=== PATIENT | female | born 1960 | race Caucasian/White ===

== ENCOUNTER 2018-01-26 13:22 | Inpatient (IN) ==
--- OUTSIDE RECORDS SUMMARY | 2018-01-26 13:32 | External Medical Summary | Clinical Summary ---
:1960 Author Organization [facility] Address [address] [place] [address] Care Team Providers Name Role Phone Unavailable Primary Care Provider Unavailable Allergies Not on File Current Medications Not on file Active Problems Not on file Social History Tobacco Use Types Packs/Day Years Used Date Never Assessed Sex Assigned at Date Recorded Not on file Plan of Treatment Health Maintenance Due Date Last Done Comments Hepatitis C Screening 1960 DTaP,Tdap,and Td Vaccines (1 - Tdap) 02/06/1979 CERVICAL CANCER SCREENING 02/06/1981 Breast Cancer Screening-Mammogram 02/06/2010 Colon Cancer Screening 02/06/2010 Zoster Recombinant Vaccine (RZV,Shingrix) (1 of 2 - [facility] 02/06/2010 2 Dose Standard) Influenza Vaccine (Season Ended) 2018 Results Not on filefrom Last 3 Months
--- NOTE | 2018-01-26 14:27 | History & Physical Report ---
History of Present Illness Date: 01/26/18 Chief complaint: Orthostatic hypotension, Lung mass HPI: Lani is a 57 yr old female who has been under the primary care of Dr Анна Davis in [facility]. She reports was seen approximately 4 weeks ago for coughing that would not go away. He was seen multiple times, however, symptoms did not improve. CT scan of the chest was performed that did reveal a large mass in the chest. On 01/23/[address] scan of the liver which did reveal a lesion in the right hepatic lobe. There was also presence of lymph nodes within the mediastinum that are concerning for metastatic disease. She has had intermittent episodes of nausea and vomiting accompanied with falls and confusion. She was referred to Dr. Lepe for oncology evaluation and recommendations. Today she was seen at the clinic and found to be hypotensive with lying blood pressure 112/74 and standing blood pressure of 73/54. Due to acute changes accompanied with concern for metastatic cancer. The hospitalist services were contacted and accepted. Patient for outpatient observation for further evaluation and treatment. Review of Systems All systems PM: 10-point ROS was reviewed, no additional remarkable complaints except - Constitutional Constitutional: Present: fatigue - Respiratory Respiratory: Present: cough, dyspnea - Gastrointestinal Gastrointestinal: Present: nausea, vomiting - Neurological Neurological: Present: confusion, frequent falls - Hematologic/Lymphatic Hematologic/Lymphatic: Present: easy bruising Past Medical History Medical History Updates: Hypertension. Hypothyroidism Surgical History: Colonoscopy-2013. Lumpectomy-2010 Family History: Mother-lung cancer Father-prostate cancer. Sister-breast cancer at age 56 Family History: As Above - Social History Smoking status: Current every day smoker Substance use type: does not use Alcohol intake frequency: does not drink Housing: house Household members: spouse Current occupational status: employed (manager integrated) Social history: Patient is , she has active and likes to garden. Has 3 adult children Medications Home Medications Medication Instructions Recorded Confirmed Type Calcium Carbonate [Calcium] 615 mg PO DAILY 01/26/18 01/26/18 History ClonazePAM [Klonopin] 0.5 mg PO DAILY PRN 01/26/18 01/26/18 History Ergocalciferol (Vitamin D2) 2 tab PO DAILY 01/26/18 01/26/18 History [Vitamin D2] FLUoxetine [Prozac] 1 cap PO DAILY 01/26/18 01/26/18 History Fenofibrate Nanocrystallized 1 tab PO HS 01/26/18 01/26/18 History [Fenofibrate] Levothyroxine Sodium 1 tab PO DAILY 01/26/18 01/26/18 History [Levothyroxine Sodium] Lisinopril/Hctz 1012.5 [Prinzide 1 tab PO DAILY 01/26/18 01/26/18 History 10/12.5] Magnesium 250 mg PO DAILY 01/26/18 01/26/18 History Pravastatin [Pravachol] 2 tab PO HS 01/26/18 01/26/18 History Ubidecarenone/Vitamin E [Co Q-10 1 tab PO DAILY 01/26/18 01/26/18 History 50 mg Softgel] Zinc 50 mg PO DAILY 01/26/18 01/26/18 History Allergies Allergy/AdvReac Type Severity Reaction Status Date / Time No Known Drug Allergies Allergy Verified 01/26/18 13:56 Exam Vital Signs: Temperature 98.1 F 01/26/18 13:43 Pulse Rate 84 01/26/18 13:43 Respiratory Rate 18 01/26/18 13:43 Blood Pressure 108/50 01/26/18 13:43 Pulse Oximetry 92 01/26/18 13:43 Height/Weight/BMI: Height 1.57 m Weight 74.6 kg Body Mass Index 30.3 - Constitutional Present: no acute distress, well nourished, well developed - Routine HEENT Exam Eye: Present: EOMI ENT: Present: mucous membranes moist, dentition normal - Routine Respiratory Exam Present: diminished air movement. Absent: wheezes - Routine Cardiovascular Exam Present: RRR, S1, S2. Absent: murmur - Routine Abdominal Exam Present: soft, normoactive bowel sounds, non distended. Absent: tenderness - Routine Extremities Exam Present: full ROM Comments: Noted to have multiple ecchymosis over legs - Routine Back/Spine/Pelvis Exam Back/Spine: Present: full ROM - Routine Skin Exam Present: intact, dry, warm - Routine Neurological Exam Present: alert, oriented X3, CN II-XII intact - Routine Psychiatric Exam Present: depressed (flat affact) Results - Labs CBC & Chem 7: 01/26/18 14:31 01/26/18 14:31 Assessment and Plan (1) Orthostatic hypotension Current visit: Yes Status: Acute Assessment and Plan: Impression Orthostatic Hypotension Frequent falls Confusion Lung mass Hypertension Hypothyroidism Chronic tobacco dependence Plan Admit patient outpatient observation status under the care of Dr Valencia Obtain orthostatic vital signs on admission Will initiate IV Fluids for hydration CT scan of the head to rule out intracranial trauma or bleeding Obtain the following labs on admission- CBC, CMP, magnesium, LDH, UA. Monitor on cardiac telemetry SCDs to bilateral for DVT prophylaxis She does wish to be a full code and this orders written Encourage tobacco cessation Will discuss further orders and plan of care with attending, Dr. Valencia At time of discharge medical care will return to primary care provider, Dr. Анна Davis in [place], [place] DVT Prophylaxis: SCD's Resuscitation Status: Full Code - Time spent with patient Time with patient PN: 50 minutes - Physician Narrative Narrative: Date: 01/26/18 Time: 1424 S: Pt is alert but oriented to self and place but not time. Pt reports n/v in the last few days but has a difficult time answering questions. Denies any f/c, reports a chronic cough. Pt has finished a series of multiple abx in the last few weeks bc of possible pna. Pt's is at beside and notes that November has been more confused in the last couple of days. Pt also reports constipation. O: Gen: no acute distress, AAOx2 Cards: RRR without murmurs Abd: Soft, non-tender A/p: Hypercalcemia -Likely 2/2 malignancy -Symptomatic and high level -Will do IV fluids, Calcitonin and monitor -Will consider ZA Possible Lung Malignancy -Lung mass, unclear if can be biopsied as plts also low - recommends possible LN biopsy initially, will disc Thrombocytopenia -Unclear etiology, possibly marrow infiltration -Some concern for DIC with high LDH -Will order DIC panel, peripheral smear Transaminitis -Possibly d/t mets vs. DIC vs. budd chiari -will do US with doppler Ppx -SCDs Hospital Course Summary Disclaimer: The visit summary below is not to be considered part of the above Progress Note. Hospital Course: Impression Orthostatic Hypotension Frequent falls Confusion Lung mass Hypertension Hypothyroidism Chronic tobacco dependence Plan Admit patient outpatient observation status under the care of Dr Valencia Obtain orthostatic vital signs on admission Will initiate IV Fluids for hydration CT scan of the head to rule out intracranial trauma or bleeding Obtain the following labs on admission- CBC, CMP, magnesium, LDH, UA. Monitor on cardiac telemetry SCDs to bilateral for DVT prophylaxis She does wish to be a full code and this orders written Encourage tobacco cessation Will discuss further orders and plan of care with attending, Dr. Valencia At time of discharge medical care will return to primary care provider, Dr. Анна Davis in [place], [place]
[2018-01-26] MEDS: NS 1,000 ML IV SCH ×4 (15:26→22:31)
--- NOTE | 2018-01-26 15:49 | CT Scan Report ---
Indication: recent falls, confusion PROCEDURE: CT head/brain wo con: Encounter: Initial Comparison: None. Findings: The ventricles and sulci are normal. There is no mass, mass effect, or midline shift. No evidence for intracranial hemorrhage. No intra, or extra-axial fluid collections. There is normal aeration of the paranasal and mastoid sinuses. There is no definite skull fracture or bony destructive process. IMPRESSION: Normal head CT without contrast. No evidence for acute cortical infarct, intracranial hemorrhage, or mass. .
[2018-01-26] MEDS: CALCITONIN 400 UNIT/2 ML INJECTION SQ SCH (18:15)
[2018-01-26] MEDS ORDERED: CALCITONIN 400 UNIT/2 ML INJECTION SQ SCH (21:00)
[2018-01-27] MEDS: NS 1,000 ML IV SCH ×4 (03:51→14:53)
--- NOTE | 2018-01-27 08:45 | Ultrasound Report ---
Indication: transaminitis PROCEDURE: US liver: Encounter: Initial Comparison: Outside chest CT dated January 23, 2018 Technique: Grayscale and color Doppler sonographic imaging of the right upper quadrant of the abdomen was performed. Findings: Hepatic parenchyma is heterogeneous with multiple small presumed metastatic lesions seen. The largest in the right lobe measures 3.6 cm in diameter. The largest in the left lobe measures 2.1 cm. The gallbladder is normal. There is no wall thickening, pericholecystic fluid, sonographic Zamorano's sign or cholelithiasis. Both the intra and extrahepatic biliary system are of normal caliber with the common duct measuring 3 mm in dimension. Visualized portions of the head and body of the pancreas are unremarkable. The right kidney is present without collecting system dilatation. The right kidney measures 11.5 cm in length. Impression: Presumed hepatic metastases. .
--- NOTE | 2018-01-27 08:49 | Ultrasound Report ---
Indication: TRANSAMINITIS PROCEDURE: US abd/pelvic doppler complete: Encounter: Initial Comparison: None Technique/findings/ Impression: Color doppler duplex imaging of the hepatic vasculature was performed. This shows normal flow direction and waveforms within the left, middle and right hepatic veins. Normal flow direction in the main portal vein with normal velocity of 30.7 cm/s. Hepatic artery shows a multiphasic normal waveform with a peak systolic velocity of 85.3 cm/s, end*velocity of 25.8 cm/s and resistive index of 0.7. .
[2018-01-27] MEDS: CALCITONIN 400 UNIT/2 ML INJECTION SQ SCH ×2 (09:31→21:16)
[2018-01-27] MEDS ORDERED: BUPIVACAINE 0.5% (5mg/ml) PF 30ml INJ SDV ONE ×2 (10:22)
[2018-01-27] MEDS ORDERED: LIDOCAINE 1% (10mg/ml) 5ml PF SDV ONE (10:23)
[2018-01-27] MEDS ORDERED: ONDANSETRON 4 MG/2 ML INJECTION IVP PRN (12:19)
[2018-01-27] MEDS ORDERED: ONDANSETRON ODT 4 MG TABLET PO PRN (12:39)
[2018-01-27] MEDS: PROCHLORPERAZINE 10 MG/2 ML INJECTION IVP PRN (12:53)
--- NOTE | 2018-01-27 13:02 | Consult Note ---
<Casandra Kenyon - Last Filed: 01/27/18 17:13> Oncology HPI - Data of Consult Consult date: 01/27/18 Requesting Physician: Arsen Valencia MD Primary Care Provider: Dr. Анна Davis - Consult Narrative Reason for consult: lung mass History of present illness: 57-year-old female seen by Dr. Lepe as new patient 01/26/18 in [place] with recent findings of lung mass, lymphadenopathy in mediastinum and hypodense liver lesions concerning for metastatic disease on CT scan done 01/23/18 in [place]. Patient with constitutional symptoms of fever, sweats, chest pain, persistent cough, shortness of air, recent confusion and falls. Also mildly orthostatic. Dunning diagnostic workup, and initiation of treatment are urgent and recommended admission to [facility]. At time of intake, patient reclining in hospital bed, at bedside. Is alert and oriented to person/place, is slow at times in her responses. Her chief complaint is nausea, denies emesis today. Also reports intermittent backache. Has intermittent 'hacking" cough, at times productive of clear sputum. Currently denies chest pain or shortness of air. Complains of chronic constipation, states normal stool 2 days ago. Denies dysuria, hematuria. No other complaints Review of Systems - Constitutional Constitutional: Present: fatigue. Absent: chills, fever(s), night sweats - EENT Eyes: Absent: change in vision Mouth/Throat: Absent: sore throat - Cardiovascular Cardiovascular: Present: dyspnea on exertion. Absent: chest pain - Respiratory Respiratory: Present: cough, dyspnea on exertion - Gastrointestinal Gastrointestinal: Present: as per HPI, constipation, nausea - Genitourinary Genitourinary: Absent: dysuria, hematuria - Musculoskeletal Musculoskeletal: Present: back pain - Neurological Neurological: Present: confusion, weakness PFSH Patient Stated Medical History Migraine Yes Dental Problems Yes: dentures Hypotension Yes Pneumonia Yes Hx Renal Disease No Depression Yes Medical History Updates: Hypertension. Hypothyroidism Surgical History: Colonoscopy-2013. Lumpectomy-2010 Family History: Sister diagnosed with breast cancer age 56. Mother age 70 with lung cancer. Father alive, history of prostate cancer, age at diagnosis 76 - Social History Smoking status: Current every day smoker Packs per day: 1 Time spent discussing smoking cessation with patient: 3 to 10 minutes Substance use type: does not use Alcohol intake frequency: does not drink Housing: house Household members: spouse Current occupational status: employed (manager of investigations) Does patient use chewing tobacco?: No Medications Home Medications Medication Instructions Recorded Confirmed Type Calcium Carbonate [Calcium] 615 mg PO DAILY 01/26/18 01/26/18 History ClonazePAM [Klonopin] 0.5 mg PO DAILY PRN 01/26/18 01/26/18 History Ergocalciferol (Vitamin D2) 2 tab PO DAILY 01/26/18 01/26/18 History [Vitamin D2] FLUoxetine [Prozac] 1 cap PO DAILY 01/26/18 01/26/18 History Fenofibrate Nanocrystallized 1 tab PO HS 01/26/18 01/26/18 History [Fenofibrate] Levothyroxine Sodium 1 tab PO DAILY 01/26/18 01/26/18 History [Levothyroxine Sodium] Lisinopril/Hctz 10/12.5 [Prinzide 1 tab PO DAILY 01/26/18 01/26/18 History 10/12.5] Magnesium 250 mg PO DAILY 01/26/18 01/26/18 History Pravastatin [Pravachol] 2 tab PO HS 01/26/18 01/26/18 History Ubidecarenone/Vitamin E [Co Q-10 1 tab PO DAILY 01/26/18 01/26/18 History 50 mg Softgel] Zinc 50 mg PO DAILY 01/26/18 01/26/18 History Allergies Allergy/AdvReac Type Severity Reaction Status Date / Time No Known Drug Allergies Allergy Verified 01/26/18 13:56 Exam Vital signs: Temperature 97.1 F 01/27/18 07:28 Pulse Rate 100 01/27/18 08:00 Respiratory Rate 16 01/26/18 22:54 Blood Pressure 142/72 H 01/27/18 07:28 Pulse Oximetry 92 01/27/18 07:28 - Constitutional no acute distress, well nourished, well developed - Routine HEENT Exam Head: Present: normocephalic Eye: Present: EOMI ENT: Present: mucous membranes dry - Routine Neck Exam Present: supple, lymphadenopathy (no cervical LAD. 1 cm left supraclavicular lymphadenopathy) - Routine Respiratory Exam Present: decreased breath sounds. Absent: wheezes, crackles - Routine Cardiovascular Exam Present: RRR, no murmur - Routine Abdominal Exam Present: soft, non tender - Routine Extremities Exam Present: no edema, full ROM - Routine Skin Exam Present: intact, dry, warm - Routine Neurological Exam Present: alert, moving all extremities - Routine Psychiatric Exam Present: normal affect, cooperative Oncology Results - Labs CBC & Chem 7: 01/27/18 04:32 01/27/18 04:32 Labs: Short CBC 01/26/18 01/26/18 01/27/18 Range/Units 14:31 14:32 04:32 WBC 4.5 4.5 3.9 L (4.5-11.0) T/MM3 Hgb 11.4 L 11.4 L 9.9 L D (12-16) GM/DL Hct 32.0 L 32.0 L 28.7 L (36-46) % Plt Count 40 L 40 L 36 L (130-400) T/MM3 BMP 01/26/18 01/27/18 14:31 04:32 Sodium 137 141 Potassium 3.5 L 3.2 L Chloride 95 L 104 D Carbon Dioxide 30 26 BUN 44.0 H 28.0 H Creatinine 1.1 0.8 D Glucose 145 H 96 Calcium 13.6 H* 11.0 H D Liver Function 01/26/18 Range/Units 14:31 Total Bilirubin 0.80 (0.20-1.30) MG/DL AST 264 H (14-36) U/L ALT 105 H (1-35) U/L Alkaline Phosphatase 105 (38-126) U/L Albumin 4.4 (3.5-5.0) g/dL Urine 01/26/18 Range/Units 14:19 Urine Color Yellow (YELLOW) Urine Clarity Clear Urine pH 6.0 (5.0-8.0) Ur Specific Kinsman 1.025 (1.015-1.025) Urine Protein Negative (NEGATIVE) Urine Glucose (UA) Negative (NEGATIVE) - Impressions Date of Exam: 01/27/18 Ordering Provider: Ash Lepe MD Type of Exam(s): CT biopsy bone marrow Reason for Exam(s): lung mass, low platelets Indication:lung mass, low platelets Procedure:CT biopsy bone marrow CT GUIDED BONE MARROW BIOPSY/ASPIRATION: The procedure including the benefits, risks, and alternatives were explained in detail to the patient. All of her questions were answered. They stated that they understood and wished to proceed. Informed consent was obtained. A pre-procedural timeout was done to verify the correct patient and procedure. Using sterile technique, local Xylocaine and Marcaine anesthesia, and CT guidance, an 11-gauge bone biopsy needle is advanced from a posterior approach into the right iliac bone. Approximately 6 cc of marrow is aspirated and a core biopsy was then taken. The needle was removed. There was no complication. Hemostasis was obtained and a compression bandage was applied. Following this, the patient was taken back to her room on the medical floor in stable condition. Impression: Successful bone marrow biopsy performed from the posterior aspect of the right iliac bone. Chencho Person RPA/ADRI performed this under my personal supervision. Assessment and Plan Assessment and Plan: 1. Abnormal CT scan with large mass in the chest obstructing left lung wind pipe and postobstructive findings. Also findings of mediastinal lymphadenopathy and liver lesion. 2. Frequent nausea/vomiting. Concern for brain metastasis. Plan Bone marrow biopsy performed today. Await pathology results. Continue supportive care. Dr. Lepe will see later today. Patient/ have no questions at this time <Ash Lepe - Last Filed: 01/27/18 19:24> Oncology HPI - Data of Consult Requesting Physician: Arsen Valencia MD Review of Systems - Respiratory Respiratory: Absent: hemoptysis [facility] Patient Stated Medical History Migraine Yes Dental Problems Yes: dentures Hypotension Yes Pneumonia Yes Hx Renal Disease No Depression Yes Exam Vital signs: Temperature 96.3 F L 01/27/18 16:00 Pulse Rate 90 01/27/18 16:00 Respiratory Rate 16 01/27/18 19:06 Blood Pressure 125/62 01/27/18 16:00 Pulse Oximetry 93 01/27/18 14:32 - Routine Neck Exam Present: lymphadenopathy - Routine Respiratory Exam Present: diminished air movement (wheezing and rhonchi of left lung.) - Routine Neurological Exam Present: CN II-XII intact Much more responsive than yesterday. Oncology Results - Labs CBC & Chem 7: 01/27/18 04:32 01/27/18 04:32 Labs: Short CBC 01/26/18 01/27/18 Range/Units 14:32 04:32 WBC 4.5 3.9 L (4.5-11.0) T/MM3 Hgb 11.4 L 9.9 L D (12-16) GM/DL Hct 32.0 L 28.7 L (36-46) % Plt Count 40 L 36 L (130-400) T/MM3 BMP 01/27/18 01/27/18 04:32 17:02 Sodium 141 Potassium 3.2 L Chloride 104 D Carbon Dioxide 26 BUN 28.0 H Creatinine 0.8 D Glucose 96 Calcium 11.0 H D 10.4 H Assessment and Plan Assessment and Plan: Patient examined, chart reviewed, I participated development of the plan of care of this patient with Shannan Kenyon. CT scan shows a large left lung mass that surrounds and narrows the left mainstem bronchus in the left lower lobe bronchus. Physical exam documents increased wheezing and stridor-type sounds through the left bronchus in the central chest. It is associated with lesions in the liver compatible with metastatic disease, hypercalcemia was calcium of 13 , confusion, elevated LDH of 4000 and severe thrombocytopenia with platelet count of 40,000. Peripheral blood has leukoerythroblastic findings. 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 Left supraclavicular lymph node is near the carotid artery and jugular vein and would be difficult to biopsy secondary to these vascular structures being so near. Will obtain bone marrow biopsy and hopefully this will yield a diagnosis if not we'll consider platelet transfusion and bronchoscopy or needle biopsy of liver. Will obtain bone scan. I discussed the bone marrow biopsy and the plan with the patient this morning. She had at this afternoon and tolerated well. Hopefully will have pathology tomorrow.
--- NOTE | 2018-01-27 13:09 | CT Scan Report ---
Indication:lung mass, low platelets Procedure:CT biopsy bone marrow CT GUIDED BONE MARROW BIOPSY/ASPIRATION: The procedure including the benefits, risks, and alternatives were explained in detail to the patient. All of her questions were answered. They stated that they understood and wished to proceed. Informed consent was obtained. A pre-procedural timeout was done to verify the correct patient and procedure. Using sterile technique, local Xylocaine and Marcaine anesthesia, and CT guidance, an 11-gauge bone biopsy needle is advanced from a posterior approach into the right iliac bone. Approximately 6 cc of marrow is aspirated and a core biopsy was then taken. The needle was removed. There was no complication. Hemostasis was obtained and a compression bandage was applied. Following this, the patient was taken back to her room on the medical floor in stable condition. Impression: Successful bone marrow biopsy performed from the posterior aspect of the right iliac bone. Chencho Person RPA/ADRI performed this under my personal supervision. .
--- NOTE | 2018-01-27 13:45 | Progress Note ---
- Date 01/27/18 Subjective: Pt reports n/v today, denies any f/c, cp or sob. Denies any abd pain. Pt not able to keep food down d/t n/v. Pt does feel a bit more awake and focused today. Objective Vital signs: Temperature 97.1 F 01/27/18 07:28 Pulse Rate 100 01/27/18 08:00 Respiratory Rate 16 01/26/18 22:54 Blood Pressure 142/72 H 01/27/18 07:28 Pulse Oximetry 92 01/27/18 07:28 Height/Weight/BMI: Height 5 ft 1.75 in Weight 76.3 kg Body Mass Index 30.3 - Constitutional Present: no acute distress - Routine HEENT Exam Head: Present: normocephalic, atraumatic Eye: Present: EOMI - Routine Respiratory Exam Present: CTA bilaterally. Absent: wheezes, crackles - Routine Cardiovascular Exam Present: RRR, no murmur - Routine Abdominal Exam Present: soft, non distended, non tender - Routine Extremities Exam Present: no edema. Absent: cyanosis, clubbing - Routine Skin Exam Present: intact, dry. Absent: erythema - Routine Neurological Exam Present: alert, oriented X3 - Routine Psychiatric Exam Present: normal affect Results - Labs CBC & Chem 7: 01/27/18 04:32 01/27/18 04:32 Assessment and Plan (1) Orthostatic hypotension Current visit: Yes Status: Acute Assessment and Plan: Hypercalcemia -Likely 2/2 malignancy -Improving -Cont. IV fluids, Calcitonin and monitor -Will consider ZA AMS -Improving, 2/2 to hypercalcemia -Check TSH, CT head unremarkable Possible Lung Malignancy -Lung mass, unclear if can be biopsied as plts also low - recommends possible LN biopsy vs. BM biopsy -Oncology following Pancytopenia -Unclear etiology, possibly marrow infiltration -Some concern for DIC with high LDH but DIC panel shows low probability of DIC -peripheral smear pending, possible bone marrow biopsy Transaminitis -Possibly d/t mets -US with doppler noted mets but otherwise unremarkable HTN -BPs improving, will cont. home lisinopril/HCTZ Hypothyroid -Check TSH -Cont. home levo HLD -Hold home pravastatin d/t transaminitis Depression/Anxiety -Cont. home fluoxetine Ppx -SCDs - Physician Narrative Narrative: Date: 01/27/18 Time: 1330 Hospital Course Summary Disclaimer: The visit summary below is not to be considered part of the above Progress Note. Hospital Course: 01/27/18 Pt improving with hypercalcemia tx, oncology team working on getting biopsy to get cancer dx.
[2018-01-27] MEDS: ALBUTEROL/IPRATROPIUM 2.5mg-0.5mg/3ml NEB AEROSOL PRN (14:32)
[2018-01-27] MEDS ORDERED: FALL RISK - PHARMACY CONSULT MC ONE (14:56)
[2018-01-27] MEDS: LEVOTHYROXINE 125 MCG TABLET PO SCH (16:35)
[2018-01-27 17:24] VITALS: BMI 31.0
[2018-01-27] MEDS ORDERED: MORPHINE SULFATE 2mg INJECTION IVP PRN (18:56)
[2018-01-28] MEDS: LEVOTHYROXINE 125 MCG TABLET PO SCH (06:14)
[2018-01-28] MEDS ORDERED: MORPHINE SULFATE 4mg INJECTION IVP PRN (06:45)
[2018-01-28] MEDS ORDERED: SALINE FLUSH 10ml SYRINGE ONE (08:32)
[2018-01-28] MEDS: LISINOPRIL/HCTZ 10/12.5 MG TABLET PO SCH (09:52)
[2018-01-28] MEDS: MAGNESIUM OXIDE 400 MG TABLET PO SCH (09:52)
[2018-01-28] MEDS: FLUoxetine 20 MG CAPSULE PO SCH (09:53)
[2018-01-28] MEDS: MAGNESIUM SULFATE 1gm PREMIX 1 GM/100 ML BAG IV SCH ×3 (10:04→13:03)
[2018-01-28] MEDS: CALCITONIN 400 UNIT/2 ML INJECTION SQ SCH ×2 (10:05→22:06)
[2018-01-28] MEDS: SALINE FLUSH 10ml SYRINGE IV PRN ×3 (10:06→18:39)
--- NOTE | 2018-01-28 11:20 | Progress Note ---
- Date 01/28/18 Subjective: Pt repots feeling better this am, n/v has improved and pt able to tolerate PO intake this am. Pt denies any cp, sob, n/v/d, f/c. Objective Vital signs: Temperature 96.6 F L 01/28/18 07:30 Pulse Rate 99 01/28/18 07:36 Respiratory Rate 16 01/28/18 07:30 Blood Pressure 119/59 01/28/18 07:38 Pulse Oximetry 104 H 01/28/18 07:38 Height/Weight/BMI: Height 5 ft 1.75 in Weight 75.3 kg Body Mass Index 31.0 - Constitutional Present: no acute distress - Routine HEENT Exam Head: Present: normocephalic, atraumatic - Routine Respiratory Exam Present: CTA bilaterally. Absent: wheezes, crackles - Routine Cardiovascular Exam Present: RRR, no murmur - Routine Abdominal Exam Present: soft, non distended, non tender - Routine Extremities Exam Present: no edema. Absent: cyanosis, clubbing - Routine Skin Exam Present: intact, dry. Absent: erythema - Routine Neurological Exam Present: alert, oriented X3 - Routine Psychiatric Exam Present: normal affect Results - Labs CBC & Chem 7: 01/28/18 04:15 01/28/18 04:15 Assessment and Plan (1) Orthostatic hypotension Current visit: Yes Status: Acute Assessment and Plan: Hypercalcemia -Likely 2/2 malignancy -Improving -d/c IV fluids, cont. calcitonin for one more day -Will consider ZA AMS -Resolved -2/2 to hypercalcemia -Check TSH low, will check T4, CT head unremarkable Possible Lung Malignancy -Lung mass, unclear if can be biopsied as plts also low - recommended BM biopsy d/t risk of bleeding -BM Biopsy done on 01/27 Pancytopenia -Unclear etiology, possibly marrow infiltration -Some concern for DIC with high LDH but DIC panel shows low probability of DIC -peripheral smear pending, bone marrow biopsy 01/27 Transaminitis -Possibly d/t mets -US with doppler noted mets but otherwise unremarkable HTN -BPs improving, will cont. home lisinopril/HCTZ Hypothyroid -TSH low, T4 pending -Cont. home levo HLD -Hold home pravastatin d/t transaminitis Depression/Anxiety -Cont. home fluoxetine Ppx -SCDs - Physician Narrative Narrative: Date: 01/28/18 Time: 1115 Hospital Course Summary Disclaimer: The visit summary below is not to be considered part of the above Progress Note. Hospital Course: 01/27/18 Pt improving with hypercalcemia tx, oncology team working on getting biopsy to get cancer dx. 01/28/18 Pt doing better with hypercalcemia tx, will back down and monitor Ca. Platelets cont. to trend down, monitor and will transfuse if <10k. Bone marrow biopsy pending.
[2018-01-28] MEDS: ALBUTEROL/IPRATROPIUM 2.5mg-0.5mg/3ml NEB AEROSOL PRN (13:00)
--- NOTE | 2018-01-28 13:50 | Nuclear Medicine Report ---
Indication: lung cancer back pain PROCEDURE: NM bone scan whole body: Encounter: Subsequent Comparison: CT chest dated January 23, 2018 Technique: 27.3 mCi of Tc-99m MDP was administered intravenously. Anterior and posterior planar whole-body and spot images were obtained. FINDINGS: The scan demonstrates the expected normal biodistribution for the radiotracer. There is probable degenerative uptake seen in the shoulders. There is no abnormal radiotracer uptake to suggest bony metastasis. IMPRESSION: No evidence of metastatic disease to the skeleton. .
--- NOTE | 2018-01-28 20:24 | Progress Note ---
Oncology Subjective Patient since back pain is better. Confusion is less. She is feeling better. Discussed preliminary diagnosis with patient, , daughter. Dr. Feldman detected earlier today that the bone marrow pathology is very suggestive of small cell lung cancer. Confirmatory stains will be out tomorrow. Exam Vital signs: Temperature 97.0 F 01/28/18 15:24 Pulse Rate 99 01/28/18 15:24 Respiratory Rate 22 01/28/18 18:38 Blood Pressure 136/72 01/28/18 15:24 Pulse Oximetry 93 01/28/18 15:24 - Constitutional no acute distress, cooperative - Routine HEENT Exam Head: Present: normocephalic Eye: Present: EOMI, PERRL ENT: Present: mucous membranes moist Throat: normal inspection - Routine Neck Exam Present: supple, lymphadenopathy (left supraclavicular area 1 cm) - Routine Respiratory Exam Present: stridor (over left lung), wheezes (over left lung) - Routine Cardiovascular Exam Present: RRR, no murmur - Routine Abdominal Exam Present: soft, non distended, non tender - Routine Extremities Exam Absent: cyanosis, clubbing, edema - Routine Skin Exam Present: dry, warm - Routine Neurological Exam Present: alert, oriented X3, CN II-XII intact - Routine Psychiatric Exam Present: normal affect, anxious Oncology Results - Labs CBC & Chem 7: 01/28/18 04:15 01/28/18 04:15 Labs: Short CBC 01/28/18 Range/Units 04:15 WBC 4.0 L (4.5-11.0) T/MM3 Hgb 9.4 L (12-16) GM/DL Hct 27.8 L (36-46) % Plt Count 27 L* (130-400) T/MM3 BMP 01/28/18 04:15 Sodium 141 Potassium 3.9 D Chloride 108 H Carbon Dioxide 23 BUN 17.0 Creatinine 0.7 Glucose 89 Calcium 10.5 H Liver Function 01/28/18 Range/Units 04:15 Albumin 3.5 (3.5-5.0) g/dL - Impressions Type of Exam(s): NM bone scan whole body Reason for Exam(s): lung cancer back pain Indication: lung cancer back pain PROCEDURE: NM bone scan whole body: Encounter: Subsequent Comparison: CT chest dated January 23, 2018 Technique: 27.3 mCi of Tc-99m MDP was administered intravenously. Anterior and posterior planar whole-body and spot images were obtained. FINDINGS: The scan demonstrates the expected normal biodistribution for the radiotracer. There is probable degenerative uptake seen in the shoulders. There is no abnormal radiotracer uptake to suggest bony metastasis. IMPRESSION: No evidence of metastatic disease to the skeleton. . Assessment and Plan Assessment and Plan: Impression: Smalll cell lung cancer Extensiver stage. This is based on bone marrow pathology preliminary report Confirmatory testing will be out tomorrow but preliminary results of bone marrow biopsy are compatible. CT scan shows a large left lung mass that surrounds and narrows the left mainstem bronchus in the left lower lobe bronchus. Physical exam documents increased wheezing and stridor-type sounds through the left bronchus in the central chest. It is associated with lesions in the liver compatible with metastatic disease, hypercalcemia was calcium of 13 on admission, confusion, elevated LDH of 4000 and severe thrombocytopenia with platelet count of 27,000. Peripheral blood has leukoerythroblastic findings. Bone scan does not show metastatic disease. Will await confirmation but will look at therapy with Carboplatin and Etoposide tomorrow when confirmatory stains are available. We'll start allopurinol, obtain MRI of the brain, place PICC line. Discussed chemotherapy with carboplatin and etoposide with the plan of starting tomorrow afternoon. Hypercalcemia. Thrombocytopenia from bone marrow involvement. Respiratory compromise of left lung secondary to mass. Plan: Chemotherapy education with carboplatinum and etoposide. Thrombocytopenia will be exacerbated initially. Will definitely require platelet support. Begin allopurinol Watch for tumor lysis Obtain MRI of the brain Follow calcium - Time Spent With Patient Total time spent is greater than 50% in coordination of care (as documented) at patient's floor/unit and/or counseling patient: 25 - 35 minutes
[2018-01-28] MEDS: ALLOPURINOL 300 MG TABLET PO SCH (22:03)
[2018-01-29] MEDS: LEVOTHYROXINE 125 MCG TABLET PO SCH (06:24)
[2018-01-29] MEDS: FLUoxetine 20 MG CAPSULE PO SCH (09:08)
[2018-01-29] MEDS: ALLOPURINOL 300 MG TABLET PO SCH (09:09)
[2018-01-29] MEDS: LISINOPRIL/HCTZ 10/12.5 MG TABLET PO SCH (09:09)
[2018-01-29] MEDS: MAGNESIUM OXIDE 400 MG TABLET PO SCH (09:09)
[2018-01-29] MEDS ORDERED: SALINE FLUSH 10ml SYRINGE ONE (10:08)
[2018-01-29] MEDS ORDERED: GADOTERIDOL 279.3mg/ml - 15ml vial IVP ONE (10:09)
--- NOTE | 2018-01-29 10:54 | Magnetic Resonance Report ---
Indication: Small cell lung cancer PROCEDURE: MR head/brain wo/w con: Encounter: Initial Comparisons: None Technique: Multiplanar, multisequence, MR imaging of the head with and without contrast was acquired. Contrast: 15 mL of ProHance FINDINGS: The ventricles are of normal size, shape, and contour for the patient's age. The brain stem, cerebellum, and cerebral hemispheres have a normal morphologic appearance as well as MR signal intensity on all pulse sequences. Following intravenous administration of contrast, no areas of abnormal enhancement are evident. There are no areas of restricted diffusion to suggest an acute infarct. There is no evidence of an intracranial mass lesion, intracranial hemorrhage, or hydrocephalus. Small left mastoid effusion. The visualized portions of the orbits, calvarium, paranasal sinuses, and skull base demonstrate no other abnormality. IMPRESSION: No evidence of intracranial metastatic disease. .
[2018-01-29] MEDS: CALCITONIN 400 UNIT/2 ML INJECTION SQ SCH ×2 (11:31→21:00)
[2018-01-29] MEDS: SALINE FLUSH 10ml SYRINGE IV PRN ×4 (11:32→20:05)
--- NOTE | 2018-01-29 11:54 | Progress Note ---
- Date 01/29/18 Subjective: Pt doing well this am, denies any cp, n/v/d, f/c. or sob. Pt saw yesterday and he told pt that she will likely be here for a couple of weeks. Objective Vital signs: Temperature 97.2 F 01/29/18 07:00 Pulse Rate 99 01/29/18 08:00 Respiratory Rate 20 01/29/18 07:00 Blood Pressure 117/63 01/29/18 07:00 Pulse Oximetry 91 01/29/18 07:00 Height/Weight/BMI: Height 5 ft 1.75 in Weight 72.2 kg Body Mass Index 31.0 - Constitutional Present: no acute distress - Routine HEENT Exam Head: Present: normocephalic, atraumatic Eye: Present: EOMI - Routine Respiratory Exam Present: CTA bilaterally. Absent: wheezes - Routine Cardiovascular Exam Present: RRR, no murmur - Routine Abdominal Exam Present: soft, non distended, non tender - Routine Extremities Exam Present: no edema. Absent: cyanosis, clubbing - Routine Skin Exam Present: intact, dry. Absent: erythema - Routine Neurological Exam Present: alert, oriented X3 - Routine Psychiatric Exam Present: normal affect Results - Labs CBC & Chem 7: 01/29/18 04:32 01/29/18 04:32 Assessment and Plan (1) Orthostatic hypotension Current visit: Yes Status: Acute Assessment and Plan: Lung Malignancy -Lung mass, plts low so recommended bone marrow biopsy d/t risk of bleeding -BM Biopsy done on 01/27, final report pending but prelim report suggests small cell lung cancer per note Hypercalcemia -Likely 2/2 malignancy, PTH low -Much improved -d/c IV fluids, cont. calcitonin for one more day -Will consider ZA AMS -Resolved -2/2 to hypercalcemia -Check TSH low, will check T4, CT head unremarkable Pancytopenia -Likely from marrow infiltration -Some concern for DIC with high LDH but DIC panel shows low probability of DIC -peripheral smear has leukoerythroblastic findings, bone marrow biopsy report pending -Expected to get worse with chemo so will monitor and replace as needed Severe Thrombocytopenia -Likely 2/2 malignancy -40k on admission, now in the 20sK -Will give plts if <10K Transaminitis -Possibly d/t mets -US with doppler noted mets but otherwise unremarkable HTN -BPs improving, will cont. home lisinopril/HCTZ Hypothyroid -TSH low, T4 pending -Cont. home levo HLD -Hold home pravastatin d/t transaminitis Depression/Anxiety -Cont. home fluoxetine Ppx -SCDs - Physician Narrative Narrative: Date: 01/29/18 Time: 1142 Hospital Course Summary Disclaimer: The visit summary below is not to be considered part of the above Progress Note. Hospital Course: 01/27/18 Pt improving with hypercalcemia tx, oncology team working on getting biopsy to get cancer dx. 01/28/18 Pt doing better with hypercalcemia tx, will back down and monitor Ca. Platelets cont. to trend down, monitor and will transfuse if <10k. Bone marrow biopsy pending. 01/29/18 Pt continues to improve but plts remain low. Prelim reports on BM biopsy shows likely small cell lung cancer, onc plans on starting chemo tx in hospital and monitor blood counts to make sure they don't drop further. Will cont. to monitor Ca levels.
--- NOTE | 2018-01-29 13:15 | Progress Note ---
<Casandra Kenyon L - Last Filed: 01/29/18 16:10> Oncology Subjective Reclining in hospital bed, family at bedside. Alert and oriented. Answers all questions appropriately. Continues with intermittent cough, denies worsening symptoms. Feels the breathing treatments have helped. Denies pain currently. States is eating and drinking better. Voiding normally. Small bowel movement today General: No fever, no night sweats Eyes: No redness, no pain, no diplopia ENT: No mouth sores, no trouble swallowing Cardiac: No chest pain no palpitations Pulmonary:+ cough, no shortness of breath, no wheezing Abdomen: No pain, no nausea vomiting, no diarrhea or constipation : No urgency, frequency, dysuria, or hematuria Musculoskeletal: No arthritis, no myalgias Neurological: No headaches, no focal weakness Skin: No rash, no sores Psychiatric: No anxiety, no depression Exam Vital signs: Temperature 97.2 F 01/29/18 07:00 Pulse Rate 99 01/29/18 08:00 Respiratory Rate 20 01/29/18 07:00 Blood Pressure 117/63 01/29/18 07:00 Pulse Oximetry 91 01/29/18 07:00 Narrative: Generic Name Dose Route Start Last Admin Trade Name Freq PRN Reason Stop Dose Admin Albuterol/Ipratropium 3 ml 01/27/18 14:23 01/29/18 14:58 Duoneb AEROSOL 3 ml Q6H PRN Administration Allopurinol 300 mg 01/28/18 22:00 01/29/18 09:09 Zyloprim PO 300 mg DAILY DELICIA Administration Calcitonin Prospect 300 unit 01/26/18 18:00 01/29/18 11:31 Miacalcin SQ 01/30/18 23:00 300 unit Q12HR DELICIA Administration Diphenhydramine HCl 50 mg 01/29/18 15:17 Benadryl IVP PRN PRN Fluoxetine HCl 20 mg 01/28/18 09:00 01/29/18 09:08 Prozac PO 20 mg DAILY DELICIA Administration Guaifenesin 400 mg 01/27/18 14:24 Robitussin Liq PO Q4H PRN Cough /Congestion Lisinopril/HCTZ 1 tab 01/28/18 09:00 01/29/18 09:09 Prinzide 10/12.5 PO 1 tab DAILY DELICIA Administration Hydrocortisone Sodium Succinate 100 mg 01/29/18 15:19 Solu-Cortef IVP PRN PRN Carboplatin 732 mg/ Sodium 323.2 mls @ 330 mls/hr 01/29/18 15:30 Chloride IV 01/29/18 16:28 O ONE Etoposide 175 mg/ Sodium 508.75 mls @ 300 mls/hr 01/29/18 16:30 Chloride IV 01/29/18 18:11 O ONE Levothyroxine Sodium 125 mcg 01/27/18 13:45 01/29/18 06:24 Synthroid PO Not Given ACB DELICIA Magnesium Oxide 200 mg 01/28/18 09:00 01/29/18 09:09 Magox PO 200 mg DAILY DELICIA Administration Methylprednisolone Sodium Succinate 125 mg 01/29/18 15:19 Solu-Medrol IVP PRN PRN Morphine Sulfate 2 - 4 mg 01/28/18 06:45 01/28/18 18:38 Morphine Sulfate Inj IVP 4 mg Q3-4HR PRN Administration Pain Olanzapine 2.5 mg 01/30/18 09:00 Zyprexa PO 02/01/18 09:01 DAILY DELICIA Ondansetron HCl 4 mg 01/27/18 12:39 01/27/18 19:06 Zofran Odt Tablet PO 4 mg Q4H PRN Administration Nausea &/or vomiting Prochlorperazine Edisylate 10 mg 01/27/18 12:39 01/27/18 12:53 Compazine Iv IVP 10 mg Q6H PRN Administration Nausea &/or vomiting Ranitidine HCl 150 mg 01/29/18 14:56 Zantac PO BID PRN Sodium Chloride 10 - 80 ml 01/27/18 04:34 01/29/18 15:11 Iv Flush IV 10 ml PRN PRN Administration Flushing Sodium Chloride 500 ml 01/28/18 10:33 01/29/18 15:17 Normal Saline IV 500 ml PRN PRN Administration Discontinued Medications Generic Name Dose Route Start Last Admin Trade Name Freq PRN Reason Stop Dose Admin Calcitonin Prospect 0 unit 01/26/18 21:00 Miacalcin SQ Q12HR DELICIA Sodium Chloride 1,000 mls @ 200 mls/hr 01/26/18 14:30 01/27/18 19:00 Normal Saline IV Infused .Q5H DELICIA Infusion Sodium Chloride 1,000 mls @ 999.9 mls/hr 01/26/18 15:00 01/26/18 17:31 Normal Saline IV 01/26/18 16:00 Not Given .Q1H DELICIA Magnesium Sulfate/Dextrose 1 gm in 100 mls @ 100 mls/hr 01/28/18 08:56 14:03 Mag Sulf 1gm Premix IV 01/28/18 11:55 Infused Q1H DELICIA Infusion Dexamethasone 10 mg/ Sodium 52.5 mls @ 210 mls/hr 01/29/18 15:00 01/29/18 16: 03 Chloride IV 01/29/18 15:14 210 mls/hr O ONE Administration Fosaprepitant 150 mg/ Sodium 145 mls @ 290 mls/hr 01/29/18 15:00 01/29/18 15: 12 Chloride IV 01/29/18 15:29 290 mls/hr O ONE Administration Morphine Sulfate 2 - 4 mg 01/27/18 18:56 01/27/18 19:06 Morphine Sulf 2 Mg Inj IVP 2 mg Q3-4HR PRN Administration Pain Olanzapine 2.5 mg 01/29/18 15:15 01/29/18 16:02 Zyprexa PO 01/29/18 15:16 2.5 mg O ONE Administration Ondansetron HCl 4 mg 01/27/18 12:19 Zofran IVP Q6H PRN Nausea &/or vomiting Palonosetron 0.25 mg 01/29/18 14:45 01/29/18 15:11 Aloxi IV 01/29/18 14:46 0.25 mg O ONE Administration Pharmacy Consult 1 each 01/27/18 14:56 Pharmacy Consult - Fall Risk 01/27/18 14:57 ONE TIME ONE Potassium Chloride 40 meq 01/27/18 08:27 01/27/18 09:32 K-Dur 20 Meq Tablet PO 01/27/18 08:28 40 meq O ONE Administration Potassium Chloride 40 meq 01/27/18 18:00 01/27/18 19:07 K-Dur 20 Meq Tablet PO 01/27/18 18:01 40 meq O ONE Administration - Constitutional no acute distress, well nourished, well developed - Routine HEENT Exam Head: Present: normocephalic Eye: Present: EOMI ENT: Present: mucous membranes moist - Routine Neck Exam Present: supple. Absent: lymphadenopathy - Routine Respiratory Exam Present: decreased breath sounds. Absent: wheezes, crackles - Routine Cardiovascular Exam Present: RRR - Routine Abdominal Exam Present: soft, non tender. Absent: mass - Routine Extremities Exam Present: no edema - Routine Back/Spine/Pelvis Exam Back/Spine: Absent: vertebral tenderness - Routine Skin Exam Present: intact, dry - Routine Neurological Exam Present: alert, oriented X3 - Routine Psychiatric Exam Present: normal affect, cooperative Oncology Results - Labs CBC & Chem 7: 01/29/18 04:32 01/29/18 04:32 Labs: Short CBC 01/29/18 Range/Units 04:32 WBC 3.4 L (4.5-11.0) T/MM3 Hgb 9.3 L (12-16) GM/DL Hct 27.5 L (36-46) % Plt Count 29 L* (130-400) T/MM3 BMP 01/29/18 04:32 Sodium 138 Potassium 3.6 Chloride 101 D Carbon Dioxide 26 BUN 13.0 Creatinine 0.6 L Glucose 98 Calcium 10.4 H Liver Function 01/29/18 Range/Units 04:32 Total Bilirubin 0.90 (0.20-1.30) MG/DL AST 220 H (14-36) U/L ALT 87 H (1-35) U/L Alkaline Phosphatase 113 (38-126) U/L Albumin 3.7 (3.5-5.0) g/dL - Impressions Date of Exam: 01/29/18 Ordering Provider: Ash Lepe MD Type of Exam(s): MR head/brain wo/w con Reason for Exam(s): Small cell lung cancer Indication: Small cell lung cancer PROCEDURE: MR head/brain wo/w con: Encounter: Initial Comparisons: None Technique: Multiplanar, multisequence, MR imaging of the head with and without contrast was acquired. Contrast: 15 mL of ProHance FINDINGS: The ventricles are of normal size, shape, and contour for the patient's age. The brain stem, cerebellum, and cerebral hemispheres have a normal morphologic appearance as well as MR signal intensity on all pulse sequences. Following intravenous administration of contrast, no areas of abnormal enhancement are evident. There are no areas of restricted diffusion to suggest an acute infarct. There is no evidence of an intracranial mass lesion, intracranial hemorrhage, or hydrocephalus. Small left mastoid effusion. The visualized portions of the orbits, calvarium, paranasal sinuses, and skull base demonstrate no other abnormality. IMPRESSION: No evidence of intracranial metastatic disease. . Assessment and Plan Assessment and Plan: Impression: Smalll cell lung cancer Extensiver stage. This is based on bone marrow pathology preliminary report Confirmatory testing will be out tomorrow but preliminary results of bone marrow biopsy are compatible. CT scan shows a large left lung mass that surrounds and narrows the left mainstem bronchus in the left lower lobe bronchus. Physical exam documents increased wheezing and stridor-type sounds through the left bronchus in the central chest. It is associated with lesions in the liver compatible with metastatic disease, hypercalcemia was calcium of 13 on admission, confusion, elevated LDH of 4000 and severe thrombocytopenia with platelet count of 27,000. Peripheral blood has leukoerythroblastic findings. Bone scan does not show metastatic disease. Will await confirmation but will look at therapy with Carboplatin and Etoposide. PICC line has been placed. MRI of brain negative for metastatic disease. Hypercalcemia. Improved. Thrombocytopenia from bone marrow involvement. Platelets 29K today, 01/29/17. Respiratory compromise of left lung secondary to mass. Subjectively reports decreased cough, denies SOA. Plan: Chemotherapy education provided today on carboplatin/etoposide. Copy of patient treatment information provided to patient and entire contents reviewed. Taught goal of treatment initially will be palliation, hopefully intent of cure. Taught desired effects, potential side effects, signs and symptoms to report,, but are the possible side effects and reviewed potential common side effects of risk of infection, bleeding, anemia, nausea vomiting, hair loss. Following discussion, has no questions and informed consent is obtained. Continue supportive care ; follow kidney function and counts closely. Reviewed importance of adequate nutrition, push fluids, be as active as possible, and continued to be abstinent from smoking. Accepts the stop smoking information and at this time plans to remain abstinent. Congratulated. - Time Spent With Patient Total time spent is greater than 50% in coordination of care (as documented) at patient's floor/unit and/or counseling patient: greater than 35 minutes Medications Home Medications Medication Instructions Recorded Confirmed Type Calcium Carbonate [Calcium] 615 mg PO DAILY 01/26/18 01/26/18 History ClonazePAM [Klonopin] 0.5 mg PO DAILY PRN 01/26/18 01/26/18 History Ergocalciferol (Vitamin D2) 2 tab PO DAILY 01/26/18 01/26/18 History [Vitamin D2] FLUoxetine [Prozac] 1 cap PO DAILY 01/26/18 01/26/18 History Fenofibrate Nanocrystallized 1 tab PO HS 01/26/18 01/26/18 History [Fenofibrate] Levothyroxine Sodium 1 tab PO DAILY 01/26/18 01/26/18 History [Levothyroxine Sodium] Lisinopril/Hctz 06/05.5 [Prinzide 1 tab PO DAILY 01/26/18 01/26/18 History 10.5] Magnesium 250 mg PO DAILY 01/26/18 01/26/18 History Pravastatin [Pravachol] 2 tab PO HS 01/26/18 01/26/18 History Ubidecarenone/Vitamin E [Co Q-10 1 tab PO DAILY 01/26/18 01/26/18 History 50 mg Softgel] Zinc 50 mg PO DAILY 01/26/18 01/26/18 History Allergies Allergy/AdvReac Type Severity Reaction Status Date / Time No Known Drug Allergies Allergy Verified 01/26/18 13:56 <Ash Lepe - Last Filed: 01/29/18 18:16> Exam Vital signs: Temperature 97.0 F 01/29/18 14:55 Pulse Rate 102 H 01/29/18 14:55 Respiratory Rate 14 01/29/18 15:00 Blood Pressure 128/77 01/29/18 14:55 Pulse Oximetry 96 01/29/18 15:00 Oncology Results - Labs CBC & Chem 7: 01/29/18 04:32 01/29/18 04:32 Labs: Short CBC 01/29/18 Range/Units 04:32 WBC 3.4 L (4.5-11.0) T/MM3 Hgb 9.3 L (12-16) GM/DL Hct 27.5 L (36-46) % Plt Count 29 L* (130-400) T/MM3 BMP 01/29/18 04:32 Sodium 138 Potassium 3.6 Chloride 101 D Carbon Dioxide 26 BUN 13.0 Creatinine 0.6 L Glucose 98 Calcium 10.4 H Liver Function 01/29/18 Range/Units 04:32 Total Bilirubin 0.90 (0.20-1.30) MG/DL AST 220 H (14-36) U/L ALT 87 H (1-35) U/L Alkaline Phosphatase 113 (38-126) U/L Albumin 3.7 (3.5-5.0) g/dL Assessment and Plan Assessment and Plan: 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 Platelets today are 29,000. LDH is 3800, calcium is 10.4, doses calculated for carboplatinum and etoposide. Chemotherapy begun today. Informed consent education by Shannan Kenyon. MRI of the brain was negative. PICC line has been placed. Expect that her platelets will continue to decrease and that she will behave much like an acute leukemic with severe neutropenia and thrombocytopenia. Will need growth factor support starting on Friday. Treatment will consist of carboplatinum AUC of 5 on day 1, etoposide 100 mg/m grade IV day 1, 2, 3. - Time Spent With Patient Total time spent is greater than 50% in coordination of care (as documented) at patient's floor/unit and/or counseling patient:
[2018-01-29] MEDS ORDERED: PALONOSETRON 0.25 MG/5 ML INJECTION IV ONE (14:45)
[2018-01-29] MEDS: ALBUTEROL/IPRATROPIUM 2.5mg-0.5mg/3ml NEB AEROSOL PRN (14:58)
[2018-01-29] MEDS ORDERED: DEXAMETHASONE INJ 10 MG in NS 50 ML IV ONE (15:00)
[2018-01-29] MEDS ORDERED: NS IV ONE ×3 (15:00→16:30)
[2018-01-29] MEDS ORDERED: FOSAPREPITANT IV ONE (15:00)
[2018-01-29] MEDS ORDERED: OLANZapine 2.5 MG TABLET PO ONE (15:15)
[2018-01-29] MEDS: NS FLUSH BAG 500ml IV PRN (15:17)
[2018-01-29] MEDS ORDERED: DiphenhydrAMINE 50 MG/ML INJECTION IVP PRN (15:17)
[2018-01-29] MEDS ORDERED: METHYLPREDNISOLONE SOD SUCC 125mg/2ml INJECTION IVP PRN (15:19)
[2018-01-29] MEDS ORDERED: HYDROCORTISONE SOD SUCC 100mg/2ml INJECTION IVP PRN (15:19)
[2018-01-29] MEDS ORDERED: CARBOPLATIN IV ONE (15:30)
[2018-01-29] MEDS ORDERED: ETOPOSIDE IV ONE (16:30)
[2018-01-29] MEDS: RANITIDINE 150 MG TABLET PO PRN (16:39)
[2018-01-29] MEDS: GUAIFENESIN 200mg/10ml ORAL LIQUID PO PRN (21:00)
[2018-01-30] MEDS: SALINE FLUSH 10ml SYRINGE IV PRN ×2 (04:25→16:02)
[2018-01-30] MEDS: LEVOTHYROXINE 125 MCG TABLET PO SCH (06:30)
[2018-01-30] MEDS: CALCITONIN 400 UNIT/2 ML INJECTION SQ SCH (09:35)
[2018-01-30] MEDS: FLUoxetine 20 MG CAPSULE PO SCH (09:35)
[2018-01-30] MEDS: ALLOPURINOL 300 MG TABLET PO SCH (09:35)
[2018-01-30] MEDS: LISINOPRIL/HCTZ 10/12.5 MG TABLET PO SCH (09:35)
[2018-01-30] MEDS: OLANZapine 2.5 MG TABLET PO SCH (09:35)
[2018-01-30] MEDS: MAGNESIUM OXIDE 400 MG TABLET PO SCH (09:35)
--- NOTE | 2018-01-30 12:32 | Progress Note ---
- Date 01/30/18 Subjective: Pt had first dose of chemo yesterday evening, reports tolerated it well. Denies any n/v/d, f/c, cp or sob. Pt had good breakfast and is ambulating well. Objective Vital signs: Temperature 96.4 F L 01/30/18 08:00 Pulse Rate 100 01/30/18 08:10 Respiratory Rate 16 01/30/18 08:10 Blood Pressure 128/78 01/30/18 08:10 Pulse Oximetry 94 01/30/18 08:10 Height/Weight/BMI: Height 5 ft 1.75 in Weight 72.8 kg Body Mass Index 31.0 - Constitutional Present: no acute distress - Routine HEENT Exam Head: Present: normocephalic, atraumatic Eye: Present: EOMI ENT: Present: mucous membranes moist - Routine Respiratory Exam Present: CTA bilaterally, wheezes - Routine Cardiovascular Exam Present: RRR, no murmur - Routine Abdominal Exam Present: soft, non distended, non tender - Routine Extremities Exam Present: no edema. Absent: cyanosis, clubbing - Routine Skin Exam Present: intact, dry. Absent: erythema - Routine Neurological Exam Present: alert, oriented X3 Results - Labs CBC & Chem 7: 01/30/18 04:21 01/30/18 04:21 Assessment and Plan (1) Orthostatic hypotension Current visit: Yes Status: Acute Assessment and Plan: Small Cell Lung Cancer -Diagnosed with bone marrow biopsy d/t risk of bleeding with low plts -BM Biopsy done on 01/27, it showed small cell lung cancer per Hypercalcemia -Likely 2/2 malignancy, PTH low -Much improved -d/c IV fluids, d/c calcitonin (received for 4 days) -May need bisphosphonates if it increases again AMS -Resolved -2/2 to hypercalcemia -CT, MRI head unremarkable Pancytopenia -Likely from marrow infiltration -Some concern for DIC with high LDH but DIC panel shows low probability of DIC -peripheral smear has leukoerythroblastic findings, bone marrow biopsy report pending -Expected to get worse with chemo so will monitor and replace as needed Severe Thrombocytopenia -Likely 2/2 malignancy -40k on admission, now in the 20sK -Will give plts if <10K Transaminitis -Possibly d/t mets -US with doppler noted mets but otherwise unremarkable HTN -BPs stable, will cont. home lisinopril/HCTZ Hypothyroid -TSH low, T4 pending -Cont. home levo HLD -Hold home pravastatin d/t transaminitis Depression/Anxiety -Cont. home fluoxetine Ppx -SCDs - Physician Narrative Narrative: Date: 01/30/18 Time: 1225 Hospital Course Summary Disclaimer: The visit summary below is not to be considered part of the above Progress Note. Hospital Course: 01/27/18 Pt improving with hypercalcemia tx, oncology team working on getting biopsy to get cancer dx. 01/28/18 Pt doing better with hypercalcemia tx, will back down and monitor Ca. Platelets cont. to trend down, monitor and will transfuse if <10k. Bone marrow biopsy pending. 01/29/18 Pt continues to improve but plts remain low. Prelim reports on BM biopsy shows likely small cell lung cancer, onc plans on starting chemo tx in hospital and monitor blood counts to make sure they don't drop further. Will cont. to monitor Ca levels. 01/30/18 Pt stable, has started chemo tx with , will follow blood counts and replace as necessary. Will cont. to monitor Ca levels as pt may need bisphosphonates if levels start increasing again.
[2018-01-30] MEDS: ALBUTEROL/IPRATROPIUM 2.5mg-0.5mg/3ml NEB AEROSOL PRN ×2 (14:50→21:14)
[2018-01-30] MEDS: NS FLUSH BAG 500ml IV PRN (16:00)
[2018-01-30] MEDS ORDERED: DEXAMETHASONE INJ 10 MG in NS 50 ML IV SCH (16:00)
[2018-01-30] MEDS: PROCHLORPERAZINE 10 MG/2 ML INJECTION IVP PRN ×2 (16:02→16:06)
[2018-01-30] MEDS ORDERED: NS IV SCH (16:30)
[2018-01-30] MEDS ORDERED: ETOPOSIDE IV SCH (16:30)
--- NOTE | 2018-01-30 18:26 | Progress Note ---
Oncology Subjective Did well with day 1 of chemotherapy. Had some vomiting with coughing episode. Otherwise tolerating chemotherapy well. Is actually feeling better since she started chemotherapy. Exam Vital signs: Temperature 97.3 F 01/30/18 16:40 Pulse Rate 92 01/30/18 16:40 Respiratory Rate 20 01/30/18 16:40 Blood Pressure 120/64 01/30/18 16:40 Pulse Oximetry 93 01/30/18 16:40 - Constitutional no acute distress, well developed - Routine HEENT Exam Head: Present: normocephalic Eye: Present: EOMI, PERRL ENT: Present: mucous membranes moist - Routine Neck Exam Present: supple. Absent: lymphadenopathy - Routine Respiratory Exam Present: wheezes (left mainstem bronchus). Absent: accessory muscle use - Routine Cardiovascular Exam Present: RRR, no murmur - Routine Abdominal Exam Present: soft, non distended, non tender - Routine Extremities Exam Present: edema (1+) - Routine Skin Exam Present: dry, warm - Routine Neurological Exam Present: alert, CN II-XII intact - Routine Psychiatric Exam Present: normal affect Oncology Results - Labs CBC & Chem 7: 01/30/18 04:21 01/30/18 16:06 Labs: Short CBC 01/30/18 Range/Units 04:21 WBC 3.3 L (4.5-11.0) T/MM3 Hgb 8.9 L (12-16) GM/DL Hct 25.5 L (36-46) % Plt Count 26 L* (130-400) T/MM3 BMP 01/30/18 01/30/18 04:21 16:06 Sodium 140 140 Potassium 4.1 3.3 L D Chloride 104 104 Carbon Dioxide 24 24 BUN 20.0 H D 24.0 H Creatinine 0.6 L 0.7 Glucose 130 H 139 H Calcium 10.4 H 10.4 H Liver Function 01/30/18 Range/Units 04:21 Total Bilirubin 0.90 (0.20-1.30) MG/DL AST 222 H (14-36) U/L ALT 87 H (1-35) U/L Alkaline Phosphatase 133 H (38-126) U/L Albumin 3.7 (3.5-5.0) g/dL Laboratory Tests 01/30/18 01/30/18 01/30/18 04:21 04:21 16:06 WBC 3.3 L Hgb 8.9 L Plt Count 26 L* Sodium 140 Potassium 3.3 L D Chloride 104 Carbon Dioxide 24 Phosphorus 5.7 H 3.6 - Impressions Pathology report given to family. Small cell lung cancer. CD 56 positive. Assessment and Plan Assessment and Plan: Extensive stage small cell lung cancer. Began chemotherapy on 01/29/18. Tolerating well. Day 2 therapy today. No evidence of tumor lysis. Follow closely. 6K. We'll need to continue to follow this closely.. Will need growth factor support starting on Friday. Treatment will consist of carboplatinum AUC of 5 on day 1, etoposide 100 mg/m grade IV day 1, 2, 3. Hyperphosphatemia this morning was normal phosphorus this afternoon. Recommendations: Continue chemotherapy Following phosphorus Follow uric acid - Time Spent With Patient Total time spent is greater than 50% in coordination of care (as documented) at patient's floor/unit and/or counseling patient: 25 - 35 minutes
[2018-01-31] MEDS: GUAIFENESIN 200mg/10ml ORAL LIQUID PO PRN (06:15)
[2018-01-31] MEDS: LEVOTHYROXINE 125 MCG TABLET PO SCH ×2 (06:15→13:36)
[2018-01-31] MEDS: SALINE FLUSH 10ml SYRINGE IV PRN ×3 (06:16→13:56)
[2018-01-31] MEDS: MAGNESIUM OXIDE 400 MG TABLET PO SCH (10:17)
[2018-01-31] MEDS: FLUoxetine 20 MG CAPSULE PO SCH (10:17)
[2018-01-31] MEDS: LISINOPRIL/HCTZ 10/12.5 MG TABLET PO SCH (10:17)
[2018-01-31] MEDS: ALLOPURINOL 300 MG TABLET PO SCH (10:17)
[2018-01-31] MEDS: OLANZapine 2.5 MG TABLET PO SCH (10:18)
--- NOTE | 2018-01-31 10:45 | Progress Note ---
Oncology Subjective Nausea and vomiting has not been present with this chemotherapy. She is doing very well with that she is feeling better. She has been up ambulating. She is eating. Infusion has improved. Exam Vital signs: Temperature 97.5 F 01/31/18 07:00 Pulse Rate 95 01/31/18 07:00 Respiratory Rate 16 01/31/18 07:00 Blood Pressure 132/64 01/31/18 07:00 Pulse Oximetry 93 01/31/18 07:00 - Constitutional no acute distress, well developed - Routine HEENT Exam Head: Present: normocephalic Eye: Present: EOMI, PERRL ENT: Present: mucous membranes moist - Routine Neck Exam Present: supple. Absent: lymphadenopathy (wheezing present on the left lung. Right lung is clear. Few rales present in the left lung.) - Routine Abdominal Exam Present: soft. Absent: non distended, non tender - Routine Extremities Exam Present: edema (1+). Absent: cyanosis, clubbing - Routine Skin Exam Present: dry, warm - Routine Neurological Exam Present: alert, oriented X3, CN II-XII intact - Routine Psychiatric Exam Present: normal affect Oncology Results - Labs CBC & Chem 7: 01/31/18 04:25 01/31/18 04:25 Labs: Short CBC 01/31/18 Range/Units 04:25 WBC 3.8 L (4.5-11.0) T/MM3 Hgb 8.7 L (12-16) GM/DL Hct 25.3 L (36-46) % Plt Count 32 L (130-400) T/MM3 BMP 01/30/18 01/31/18 16:06 04:25 Sodium 140 141 Potassium 3.3 L D 3.8 Chloride 104 105 Carbon Dioxide 24 24 BUN 24.0 H 25.0 H Creatinine 0.7 0.7 Glucose 139 H 125 H Calcium 10.4 H 10.3 H Liver Function 01/31/18 Range/Units 04:25 Total Bilirubin 0.60 (0.20-1.30) MG/DL AST 229 H (14-36) U/L ALT 84 H (1-35) U/L Alkaline Phosphatase 169 H D (38-126) U/L Albumin 3.7 (3.5-5.0) g/dL - Impressions Laboratory Tests 01/29/18 01/29/18 01/30/18 04:32 04:32 04:21 WBC Hgb Plt Count 29 L* Neutrophils % (Manual) Band Neutrophils % Uric Acid 5.6 Calcium Phosphorus Magnesium AST 220 H 222 H Alkaline Phosphatase Lactate Dehydrogenase 01/30/18 01/31/18 01/31/18 04:21 04:25 04:25 WBC 3.8 L Hgb 8.7 L Plt Count 26 L* 32 L Neutrophils % (Manual) 68.0 H Band Neutrophils % 11.0 H Uric Acid 5.8 Calcium 10.3 H Phosphorus 3.8 Magnesium 1.7 AST 229 H Alkaline Phosphatase 169 H D Lactate Dehydrogenase 4146 H Assessment and Plan Assessment and Plan: Extensive stage small cell lung cancer. Began chemotherapy on 01/29/18. Tolerating well. Day 3 therapy today. Uric acid is slightly higher today at 5.8. LDH is 4100. No evidence of tumor lysis. Phosphorus had been elevated but it is now normal. Uric acid is slightly higher on 01/31/18 at 5.8. Alkaline phosphatase is slightly higher at 220. Calcium is 10.4. We'll continue present therapy with day 3 of therapy. Follow closely. We'll need to continue to follow this closely.. Will need growth factor support starting on Friday. Treatment will consist of carboplatinum AUC of 5 on day 1, etoposide 100 mg/m grade IV day 1, 2, 3. Hyperphosphatemia on 01/29/18. Normalized on 01/30/18 in 01/31/18 Recommendations: Continue chemotherapy. Complete day 3 etoposide on 01/31/18 Following phosphorus Follow uric acid - Time Spent With Patient Total time spent is greater than 50% in coordination of care (as documented) at patient's floor/unit and/or counseling patient: less than 15 minutes
--- NOTE | 2018-01-31 12:00 | Progress Note ---
- Date 01/31/18 Subjective: Lani is seen today in follow up. She is feeling ok- no acute c/o. No increase in SOA. No pain. Reports she has not immediate concerns. is at bedside- he also reports no questions at this time. Objective Vital signs: Temperature 97.5 F 01/31/18 07:00 Pulse Rate 95 01/31/18 07:00 Respiratory Rate 16 01/31/18 07:00 Blood Pressure 132/64 01/31/18 07:00 Pulse Oximetry 93 01/31/18 07:00 Height/Weight/BMI: Height 1.57 m Weight 73.9 kg Body Mass Index 31.0 - Constitutional Present: no acute distress, average body habitus, cooperative - Routine HEENT Exam Head: Present: normocephalic, atraumatic Eye: Present: EOMI, PERRL - Routine Respiratory Exam Present: rhonchi, stridor (Left lung), wheezes. Absent: accessory muscle use, dyspnea, respiratory distress - Routine Cardiovascular Exam Present: RRR, S1, S2, no murmur - Routine Abdominal Exam Present: soft, normoactive bowel sounds, non distended, non tender - Routine Extremities Exam Present: no edema, non tender Comments: Ecchymosis on LE bilaterally, mild - Routine Musculoskeletal Exam Musculoskeletal: Present: normal strength, moving extremities well - Routine Skin Exam Present: intact, dry, warm, ecchymosis - Routine Neurological Exam Present: alert, oriented X3, moving all extremities - Routine Psychiatric Exam Present: cooperative, good insight, depressed (mildly depressed affect) Results - Labs CBC & Chem 7: 01/31/18 04:25 01/31/18 04:25 - Impressions Brain MRI negative. Assessment and Plan (1) Orthostatic hypotension Current visit: Yes Status: Acute Assessment and Plan: Small Cell Lung Cancer -Diagnosed with bone marrow biopsy d/t risk of bleeding with low plts -BM Biopsy done on 01/27, it showed small cell lung cancer per Hypercalcemia -Likely 2/2 malignancy, PTH low -Much improved -d/c IV fluids, d/c calcitonin (received for 4 days) -May need bisphosphonates if it increases again AMS -Resolved -2/2 to hypercalcemia -CT, MRI head unremarkable Pancytopenia -Likely from marrow infiltration -Some concern for DIC with high LDH but DIC panel shows low probability of DIC -peripheral smear has leukoerythroblastic findings, bone marrow biopsy report pending -Expected to get worse with chemo so will monitor and replace as needed Severe Thrombocytopenia -Likely 2/2 malignancy -40k on admission, now in the 30sK -Will give plts if <10K Transaminitis -Possibly d/t mets -US with doppler noted mets but otherwise unremarkable HTN -BPs stable, will cont. home lisinopril/HCTZ Hypothyroid -TSH low, Free T4 is elevated. -Decreased home Levothyroxine to 125 down to 112 mcg 01/31/18 HLD -Hold home pravastatin d/t transaminitis Depression/Anxiety -Cont. home fluoxetine Ppx -SCDs 01/31/18 New SCLC with mets to liver. Confirmed on iliac crest BM bx. To complete day #[address] Lepe. Tolerating well. Decrease Synthroid. Plan to recheck thyroid labs in 4 weeks or so. Monitor depression. Follow labs. Will need to continue to trend LFTs due to elevation. No N/V or GI c/o currently. DVT Prophylaxis: SCD's Resuscitation Status: Full Code - Physician Narrative Physician: Graciela Khanna MD Narrative: Date: 01/31/18 Time: 4:20-I examined the patient independently. I reviewed this chart, the patient history, and the BUSINESS SUPPORT COORDINATOR's/PA's documented findings as above. We discussed and formulated the assessment and plan as above with the additions below.-Dr. Khanna The patient was seen this afternoon in her room accompanied by her , her father, and her stepmother. She states she is feeling well. She no longer feels confused. Her family states she is pretty much back to baseline. She has some shortness of breath at times and notices some wheezing. She denies pain anywhere. She states her appetite is getting better. On exam she is alert and oriented and in no acute distress. Chest reveals some stridor-type wheezing more so in the left lung field than the right. No rhonchi. No crackles. Cardiovascular reveals a regular rate and rhythm. Abdomen is soft and nontender. Extremities are free of edema. Impression and plan Hypercalcemia has resolved with IV fluids, Miacalcin subcutaneous, and discontinuation of calcium and vitamin D The patient is doing well with initiation of chemotherapy for small cell lung cancer Severe thrombocytopenia is stable It's for hyperlipidemia on hold regarding transaminitis Levothyroxine decreased due to low TSH and elevated free T4. Discussed today with Dr. Lepe Hospital Course Summary Disclaimer: The visit summary below is not to be considered part of the above Progress Note. Hospital Course: 01/27/18 Pt improving with hypercalcemia tx, oncology team working on getting biopsy to get cancer dx. 01/28/18 Pt doing better with hypercalcemia tx, will back down and monitor Ca. Platelets cont. to trend down, monitor and will transfuse if <10k. Bone marrow biopsy pending. 01/29/18 Pt continues to improve but plts remain low. Prelim reports on BM biopsy shows likely small cell lung cancer, onc plans on starting chemo tx in hospital and monitor blood counts to make sure they don't drop further. Will cont. to monitor Ca levels. 01/30/18 Pt stable, has started chemo tx with , will follow blood counts and replace as necessary. Will cont. to monitor Ca levels as pt may need bisphosphonates if levels start increasing again. 01/31/18 New SCLC with mets to liver. Confirmed on iliac crest BM bx. To complete day #[address] Lepe. Tolerating well. Decrease Synthroid. Plan to recheck thyroid labs in 4 weeks or so. Monitor depression. Follow labs. Will need to continue to trend LFTs due to elevation. No N/V or GI c/o currently.
[2018-01-31] MEDS ORDERED: DEXAMETHASONE INJ 10 MG in NS 50 ML IV SCH (13:30)
[2018-01-31] MEDS: NS FLUSH BAG 500ml IV PRN (13:35)
[2018-01-31] MEDS ORDERED: ETOPOSIDE IV SCH (14:00)
[2018-01-31] MEDS ORDERED: NS IV SCH (14:00)
[2018-01-31] MEDS: PROCHLORPERAZINE 10 MG/2 ML INJECTION IVP PRN (14:02)
[2018-01-31] MEDS: RANITIDINE 150 MG TABLET PO PRN (18:17)
[2018-02-01] MEDS: GUAIFENESIN 200mg/10ml ORAL LIQUID PO PRN (00:07)
[2018-02-01] MEDS: LEVOTHYROXINE 125 MCG TABLET PO SCH (06:49)
[2018-02-01] MEDS: LISINOPRIL/HCTZ 10/12.5 MG TABLET PO SCH (08:57)
[2018-02-01] MEDS: OLANZapine 2.5 MG TABLET PO SCH (08:57)
[2018-02-01] MEDS: ALLOPURINOL 300 MG TABLET PO SCH (08:58)
[2018-02-01] MEDS: MAGNESIUM OXIDE 400 MG TABLET PO SCH (08:58)
[2018-02-01] MEDS: FLUoxetine 20 MG CAPSULE PO SCH (08:58)
--- NOTE | 2018-02-01 10:04 | Progress Note ---
- Date 02/01/18 Subjective: November is seen today in follow up. She is feeling fairly well. Eating well. No c/ o. Hoping to see Dr. Lepe later today. Objective Vital signs: Temperature 96.4 F L 02/01/18 07:22 Pulse Rate 91 02/01/18 07:22 Respiratory Rate 18 02/01/18 07:22 Blood Pressure 139/78 02/01/18 07:22 Pulse Oximetry 95 02/01/18 07:22 Height/Weight/BMI: Height 1.57 m Weight 74.3 kg Body Mass Index 31.0 - Constitutional Present: no acute distress, well nourished, well developed, cooperative - Routine HEENT Exam Head: Present: normocephalic, atraumatic Eye: Present: EOMI, PERRL ENT: Present: mucous membranes moist - Routine Respiratory Exam Present: rhonchi (Breath sounds worse left, some referral to the right. ), stridor, wheezes. Absent: accessory muscle use, dyspnea - Routine Cardiovascular Exam Present: RRR, S1, S2, no murmur - Routine Abdominal Exam Present: soft, normoactive bowel sounds, non distended, non tender - Routine Extremities Exam Present: no edema, non tender - Routine Musculoskeletal Exam Musculoskeletal: Present: normal strength, moving extremities well - Routine Skin Exam Present: intact, dry, warm, ecchymosis - Routine Neurological Exam Present: alert, oriented X3, moving all extremities - Routine Psychiatric Exam Present: normal affect, normal thought process, cooperative Results - Labs CBC & Chem 7: 02/01/18 04:11 02/01/18 04:11 Assessment and Plan (1) Orthostatic hypotension Current visit: Yes Status: Acute Assessment and Plan: Small Cell Lung Cancer -Diagnosed with bone marrow biopsy d/t risk of bleeding with low plts -BM Biopsy done on 01/27, it showed small cell lung cancer per Hypercalcemia -Likely 2/2 malignancy, PTH low -Much improved -d/c IV fluids, d/c calcitonin (received for 4 days) -May need bisphosphonates if it increases again AMS -Resolved -2/2 to hypercalcemia -CT, MRI head unremarkable Pancytopenia -Likely from marrow infiltration -Some concern for DIC with high LDH but DIC panel shows low probability of DIC -peripheral smear has leukoerythroblastic findings, bone marrow biopsy report pending -Expected to get worse with chemo so will monitor and replace as needed Severe Thrombocytopenia -Likely 2/2 malignancy -40k on admission, now in the 30sK -Will give plts if <10K Transaminitis -Possibly d/t mets -US with doppler noted mets but otherwise unremarkable HTN -BPs stable, will cont. home lisinopril/HCTZ Hypothyroid -TSH low, Free T4 is elevated. -Decreased home Levothyroxine to 125 down to 112 mcg 01/31/18 HLD -Hold home pravastatin d/t transaminitis Depression/Anxiety -Cont. home fluoxetine Ppx -SCDs 02/01/18 New SCLC with mets to liver. Confirmed on iliac crest BM bx. s/p day #3 chemotherapy 01/31/[address] Lepe. Tolerating well. Labs appear stable. Decreased Synthroid. Plan to recheck thyroid labs in 4 weeks or so. Monitor depression. LFTS remains elevated, known hepatic mets. No GI c/o today. Home soon? DVT Prophylaxis: SCD's GI Prophylaxis: Rantidine Resuscitation Status: Full Code - Physician Narrative Physician: Graciela Khanna MD Narrative: Date: 02/01/18 Time: 4 PM-I examined the patient independently. I reviewed this chart, the patient history, and the WALLPAPER HANGER's/PA's documented findings as above. We discussed and formulated the assessment and plan as above with the additions below.-Dr. Khanna The patient was seen this afternoon in her room accompanied by her daughter. She states she feels a little slowed sometimes to think of the word she wants to say but otherwise does not feel confused. Her daughter states that at time she's seems to have a delay in her speaking but otherwise seems better. Patient states that she feels a little more short of breath today but has not had a breathing treatment yet. She states the breathing treatments do help and she has asked for a breathing treatment now. Her appetite is getting better. She has not had a bowel movement recently, but does not want to take any laxatives today since she is likely going to be going home and driving tomorrow. On exam the patient is alert and oriented and in no acute distress. HEENT reveals sclerae to be anicteric and pupils are equal. Oropharynx is moist. Neck is supple. Chest reveals some stridorus wheezing more so on the left, unchanged from yesterday he had abdomen is soft and nontender. Extremities are free of edema. Skin reveals a few bruises. Impression and plan Patient has done well with initiation of chemotherapy. Recheck lab work tomorrow. Chest x-ray tomorrow. Probable discharge tomorrow if she continues to do well and no worsening in lab. Discussed today with Dr. Lepe. The patient will need a nebulizer and breathing treatments when she goes home. We'll discuss with Dr. Lepe with herpetic should stay in place or be removed prior to discharge. Patient states that they are considering when to place a Port-A-Cath. Hospital Course Summary Disclaimer: The visit summary below is not to be considered part of the above Progress Note. Hospital Course: 01/27/18 Pt improving with hypercalcemia tx, oncology team working on getting biopsy to get cancer dx. 01/28/18 Pt doing better with hypercalcemia tx, will back down and monitor Ca. Platelets cont. to trend down, monitor and will transfuse if <10k. Bone marrow biopsy pending. 01/29/18 Pt continues to improve but plts remain low. Prelim reports on BM biopsy shows likely small cell lung cancer, onc plans on starting chemo tx in hospital and monitor blood counts to make sure they don't drop further. Will cont. to monitor Ca levels. 01/30/18 Pt stable, has started chemo tx with , will follow blood counts and replace as necessary. Will cont. to monitor Ca levels as pt may need bisphosphonates if levels start increasing again. 01/31/18 New SCLC with mets to liver. Confirmed on iliac crest BM bx. To complete day #[address] Lepe. Tolerating well. Decrease Synthroid. Plan to recheck thyroid labs in 4 weeks or so. Monitor depression. Follow labs. Will need to continue to trend LFTs due to elevation. No N/V or GI c/o currently. 02/01/18 New SCLC with mets to liver. Confirmed on iliac crest BM bx. s/p day #3 chemotherapy 01/31/[address] Lepe. Tolerating well. Labs appear stable. Decreased Synthroid. Plan to recheck thyroid labs in 4 weeks or so. Monitor depression. LFTS remains elevated, known hepatic mets. No GI c/o today. Home soon?
--- NOTE | 2018-02-01 12:56 | Progress Note ---
Oncology Subjective Patient is tolerating chemotherapy very. Platelets are 30 4K today. They have been very stable. Will give Neulasta this evening. If counts are stable tomorrow we'll attempt to dismiss in follow-up as an outpatient in [place]. Exam Vital signs: Temperature 96.4 F L 02/01/18 07:22 Pulse Rate 91 02/01/18 07:22 Respiratory Rate 18 02/01/18 07:22 Blood Pressure 139/78 02/01/18 07:22 Pulse Oximetry 95 02/01/18 07:22 - Constitutional no acute distress, well developed - Routine HEENT Exam Head: Present: normocephalic Eye: Present: EOMI, PERRL. Absent: scleral injection ENT: Present: mucous membranes moist - Routine Neck Exam Present: supple. Absent: lymphadenopathy - Routine Respiratory Exam Absent: accessory muscle use, CTA bilaterally (wheezes present in the left lung right lung is clear) - Routine Cardiovascular Exam Present: RRR, no murmur - Routine Abdominal Exam Present: soft, non tender, distended - Routine Extremities Exam Present: edema (1+). Absent: cyanosis, clubbing - Routine Skin Exam Present: dry, warm - Routine Neurological Exam Present: alert, CN II-XII intact - Routine Psychiatric Exam Present: normal affect Oncology Results - Labs CBC & Chem 7: 02/01/18 04:11 02/01/18 04:11 Labs: Short CBC 02/01/18 Range/Units 04:11 WBC 3.5 L (4.5-11.0) T/MM3 Hgb 9.0 L (12-16) GM/DL Hct 26.8 L (36-46) % Plt Count 34 L (130-400) T/MM3 [facility] 02/01/18 04:11 Sodium 141 Potassium 4.1 Chloride 107 Carbon Dioxide 22 BUN 32.0 H Creatinine 0.8 Glucose 121 H Calcium 10.2 Liver Function 02/01/18 Range/Units 04:11 Total Bilirubin 0.70 (0.20-1.30) MG/DL AST 235 H (14-36) U/L ALT 81 H (1-35) U/L Alkaline Phosphatase 181 H (38-126) U/L Albumin 3.9 (3.5-5.0) g/dL - Impressions Laboratory Tests 01/28/18 02/01/18 04:15 04:11 BUN 32.0 H Creatinine 0.8 Calcium 10.2 Phosphorus 3.4 Magnesium 1.9 Total Bilirubin 0.70 AST 235 H ALT 81 H Alkaline Phosphatase 181 H Free T4 2.29 H Assessment and Plan Assessment and Plan: Extensive stage small cell lung cancer. Began chemotherapy on 01/29/18. Tolerating well. Day 3 therapy 01/31. . Uric acid is slightly higher today at 5.8 on 01/31. LDH is 4100. No evidence of tumor lysis. y. Treatment will consist of carboplatinum AUC of 5 on day 1, etoposide 100 mg per meter squared IV day 1, 2 , 3. Neulasta this evening. Check lab and if adequate could possibly go home tomorrow. Lab ordered for in the morning and chest x-ray ordered for in the morning. Hyperphosphatemia on 01/29/18. Normalized on 01/30/18 in 01/31/18. Will check on . Hyperthyroidism with elevated free T4. Level thyroxine dose has been reduced. Recommendations: Continue chemotherapy. Completed day 3 etoposide on 01/31/18 Following phosphorus Follow uric acid Follow counts with platelet transfusion support as needed. Possibly discharge tomorrow with follow-up with Shannan Kenyon in [place] on Friday, she will see me on 02/09/18 in [place]. She will need a CBC, CMP, LDH, magnesium daily until she sees Shannan Kenyon - Time Spent With Patient Total time spent is greater than 50% in coordination of care (as documented) at patient's floor/unit and/or counseling patient: 25 - 35 minutes
[2018-02-01] MEDS: ALBUTEROL/IPRATROPIUM 2.5mg-0.5mg/3ml NEB AEROSOL PRN (19:27)
[2018-02-01] MEDS ORDERED: PEGFILGRASTIM 6 MG/0.6 ML INJECTION SQ ONE (20:00)
[2018-02-02] MEDS: ACETAMINOPHEN 325 MG TABLET PO PRN ×2 (00:51→22:36)
[2018-02-02] MEDS: RANITIDINE 150 MG TABLET PO PRN ×3 (00:53→22:45)
[2018-02-02] MEDS: ALBUTEROL/IPRATROPIUM 2.5mg-0.5mg/3ml NEB AEROSOL PRN (03:54)
[2018-02-02] MEDS: LEVOTHYROXINE 125 MCG TABLET PO SCH (05:32)
--- NOTE | 2018-02-02 06:25 | Progress Note ---
<RoberthAsh D - Last Filed: 02/02/18 06:22> Exam Vital signs: Temperature 98.9 F 02/02/18 04:00 Pulse Rate 94 02/02/18 04:00 Respiratory Rate 18 02/02/18 04:00 Blood Pressure 112/54 02/02/18 04:00 Pulse Oximetry 92 02/02/18 04:00 Oncology Results - Labs CBC & Chem 7: 02/02/18 03:48 02/02/18 03:48 Labs: Short CBC 02/02/18 Range/Units 03:48 WBC 2.8 L (4.5-11.0) T/MM3 Hgb 8.0 L D (12-16) GM/DL Hct 23.6 L D (36-46) % Plt Count 27 L* (130-400) T/MM3 BMP 02/02/18 03:48 Sodium 140 Potassium 3.6 Chloride 105 Carbon Dioxide 25 BUN 32.0 H Creatinine 0.8 Glucose 108 Calcium 9.5 Liver Function 02/02/18 Range/Units 03:48 Total Bilirubin 0.60 (0.20-1.30) MG/DL AST 204 H (14-36) U/L ALT 71 H (1-35) U/L Alkaline Phosphatase 178 H (38-126) U/L Albumin 3.4 L (3.5-5.0) g/dL - Impressions Laboratory Tests 02/02/18 02/02/18 03:48 03:48 WBC 2.8 L Hgb 8.0 L D Hct 23.6 L D Plt Count 27 L* Potassium 3.6 BUN 32.0 H Creatinine 0.8 Phosphorus 4.6 H Magnesium 1.8 Total Bilirubin 0.60 AST 204 H ALT 71 H Alkaline Phosphatase 178 H Lactate Dehydrogenase 4013 H Laboratory Tests 01/30/18 01/31/18 02/02/18 04:21 04:25 03:48 Uric Acid 5.6 5.8 6.5 Assessment and Plan Assessment and Plan: Extensive stage small cell lung cancer. Began chemotherapy on 01/29/18. Tolerated well. Day 3 therapy 01/31. . Uric acid is slightly higher today at 6.5 on02/02. 5.8 on 01/31. LDH is 4146 on 02/01. 4013 on 02/02. Phosphorus is higher this morning. This suggest mild evidence of tumor lysis. Treatment carboplatinum AUC of 5 on day 1, etoposide 100 mg per meter squared IV day 1, 2, 3. Neulasta given 02/01. Check lab and if adequate could possibly go home tomorrow. Lab ordered for in the morning and chest x-ray ordered for in the morning. Hyperphosphatemia on 01/29/18. Normalized on 01/30/18 in 01/31/18. High on 02/02/18 Will follow for another 24 hours. Hyperthyroidism with elevated free T4. Level thyroxine dose has been reduced. Thrombocytopenia. Platelets lower at 27 K today. Anemia. Hgb 8.0 Suspect she will need transfusion. Recommendations: Continue chemotherapy. Completed day 3 etoposide on 01/31/18 Following phosphorus Follow uric acid Follow counts with platelet transfusion support as needed. Possibly discharge Friday with follow-up with Shannan Kenyon in [place] on Friday , she will see me on 02/09/18 in [place]. She will need a CBC, CMP, LDH, magnesium daily until she sees Shannan Kenyon - Time Spent With Patient Total time spent is greater than 50% in coordination of care (as documented) at patient's floor/unit and/or counseling patient: <KostasCasandra L - Last Filed: 02/02/18 17:06> Oncology Subjective Reclining in hospital bed, alone in room. Initially only complaint is constipation; states small firm BM earlier today after MiraLAX. Reports last BM 4 days ago. Denies fever, chills. Denies cough or shortness of air. She is eating and drinking fair. No hematuria/dysuria. She then reports sore throat ," because of mouth sores." Started Nystatin today. General: No fever, no night sweats Eyes: No redness, no pain, no diplopia ENT: + mouth sores, + sore throat Cardiac: No chest pain no palpitations Pulmonary: No cough, no shortness of breath, no wheezing Abdomen: No pain, no nausea vomiting, + constipation : No urgency, frequency, dysuria, or hematuria Musculoskeletal: No arthritis, no myalgias Neurological: No headaches, no focal weakness Skin: No rash, no sores Psychiatric: No anxiety, no depression Exam Vital signs: Temperature 97.3 F 02/02/18 08:00 Pulse Rate 101 H 06/11/18 08:00 Respiratory Rate 18 02/02/18 08:00 Blood Pressure 117/69 02/02/18 08:00 Pulse Oximetry 97 02/02/18 08:00 Narrative: Generic Name Dose Route Start Last Admin Trade Name Freq PRN Reason Stop Dose Admin Acetaminophen 650 mg 02/01/18 19:02 02/02/18 00:51 Tylenol PO 650 mg Q6H PRN Administration Pain Albuterol/Ipratropium 3 ml 01/27/18 14:23 02/02/18 03:54 Duoneb AEROSOL 3 ml Q6H PRN Administration Allopurinol 300 mg 01/28/18 22:00 02/02/18 09:04 Zyloprim PO 300 mg DAILY DELICIA Administration Diphenhydramine HCl 50 mg 01/29/18 15:17 Benadryl IVP PRN PRN Fluoxetine HCl 20 mg 01/28/18 09:00 02/02/18 09:04 Prozac PO 20 mg DAILY DELICIA Administration Guaifenesin 400 mg 01/27/18 14:24 02/01/18 00:07 Robitussin Liq PO 400 mg Q4H PRN Administration Cough /Congestion Lisinopril/HCTZ 1 tab 01/28/18 09:00 02/02/18 09:04 Prinzide 10/12.5 PO 1 tab DAILY DELICIA Administration Hydrocortisone Sodium Succinate 100 mg 01/29/18 15:19 Solu-Cortef IVP PRN PRN Levothyroxine Sodium 112 mcg 02/03/18 06:30 Synthroid PO ACB DELICIA Magnesium Oxide 200 mg 01/28/18 09:00 02/02/18 09:04 Magox PO 200 mg DAILY DELICIA Administration Methylprednisolone Sodium Succinate 125 mg 01/29/18 15:19 Solu-Medrol IVP PRN PRN Morphine Sulfate 2 - 4 mg 02/02/18 09:15 Morphine Sulfate Inj IVP Q3H PRN Pain Nystatin 5 ml 02/02/18 13:00 02/02/18 13:10 Mycostatin PO 5 ml QID DELICIA Administration Ondansetron HCl 4 mg 01/27/18 12:39 01/27/18 19:06 Zofran Odt Tablet PO 4 mg Q4H PRN Administration Nausea &/or vomiting Polyethylene Glycol 17 gm 02/02/18 09:00 06/11/18 09:04 Miralax PO 17 gm DAILY DELICIA Administration Prochlorperazine Edisylate 10 mg 01/27/18 12:39 01/31/18 14:02 Compazine Iv IVP 10 mg Q6H PRN Administration Nausea &/or vomiting Ranitidine HCl 150 mg 01/29/18 14:56 02/02/18 00:53 Zantac PO 150 mg BID PRN Administration Sodium Chloride 10 - 80 ml 01/27/18 04:34 01/31/18 13:56 Iv Flush IV 40 ml PRN PRN Administration Flushing Sodium Chloride 500 ml 01/28/18 10:33 01/31/18 13:35 Normal Saline IV 500 ml PRN PRN Administration Discontinued Medications Generic Name Dose Route Start Last Admin Trade Name Freq PRN Reason Stop Dose Admin Calcitonin Euless 0 unit 01/26/18 21:00 Miacalcin SQ Q12HR DELICIA Calcitonin E[place] 300 unit 01/26/18 18:00 01/30/18 09:35 Miacalcin SQ 01/30/18 23:00 300 unit Q12HR DELICIA Administration Sodium Chloride 1,000 mls @ 200 mls/hr 01/26/18 14:30 01/27/18 19:00 Normal Saline IV Infused .Q5H DELICIA Infusion Sodium Chloride 1,000 mls @ 999.9 mls/hr 01/26/18 15:00 01/26/18 17:31 Normal Saline IV 01/26/18 16:00 Not Given .Q1H DELICIA Magnesium Sulfate/Dextrose 1 gm in 100 mls @ 100 mls/hr 01/28/18 08:56 14:03 Mag Sulf 1gm Premix IV 01/28/18 11:55 Infused Q1H DELICIA Infusion Dexamethasone 10 mg/ Sodium 52.5 mls @ 210 mls/hr 01/29/18 15:00 01/29/18 16: 18 Chloride IV 01/29/18 15:14 Infused O ONE Infusion Fosaprepitant 150 mg/ Sodium 145 mls @ 290 mls/hr 01/29/18 15:00 01/29/18 15: 42 Chloride IV 01/29/18 15:29 Infused O ONE Infusion Carboplatin 732 mg/ Sodium 323.2 mls @ 330 mls/hr 01/29/18 15:30 01/29/18 17: 39 Chloride IV 01/29/18 16:28 Infused O ONE Infusion Etoposide 175 mg/ Sodium 508.75 mls @ 300 mls/hr 01/29/18 16:30 01/29/18 20: 14 Chloride IV 01/29/18 18:11 Infused O ONE Infusion Etoposide 175 mg/ Sodium 508.75 mls @ 300 mls/hr 01/30/18 16:30 01/30/18 18: 30 Chloride IV 01/31/18 18:12 Infused 1630 DELICIA Infusion Dexamethasone 10 mg/ Sodium 52.5 mls @ 210 mls/hr 01/30/18 16:00 01/30/18 16: 06 Chloride IV 01/31/18 16:14 Infused 1600 DELICIA Infusion Dexamethasone 10 mg/ Sodium 52.5 mls @ 210 mls/hr 01/31/18 13:30 01/31/18 13: 53 Chloride IV 01/31/18 13:44 Infused 1330 DELICIA Infusion Etoposide 175 mg/ Sodium 508.75 mls @ 300 mls/hr 01/31/18 14:00 01/31/18 16: 00 Chloride IV 01/31/18 15:42 Infused 1400 DELICIA Infusion Levothyroxine Sodium 125 mcg 01/27/18 13:45 01/31/18 06:15 Synthroid PO 125 mcg ACB DELICIA Administration Levothyroxine Sodium 112 mcg 01/31/18 12:15 02/02/18 05:32 Synthroid PO 112 mcg ACB DELICIA Administration Morphine Sulfate 2 - 4 mg 01/27/18 18:56 01/27/18 19:06 Morphine Sulf 2 Mg Inj IVP 2 mg Q3-4HR PRN Administration Pain Morphine Sulfate 2 - 4 mg 01/28/18 06:45 01/28/18 18:38 Morphine Sulfate Inj IVP 4 mg Q3-4HR PRN Administration Pain Olanzapine 2.5 mg 01/29/18 15:15 01/29/18 16:02 Zyprexa PO 01/29/18 15:16 2.5 mg O ONE Administration Olanzapine 2.5 mg 01/30/18 09:00 02/01/18 08:57 Zyprexa PO 02/01/18 09:01 2.5 mg DAILY DELICIA Administration Ondansetron HCl 4 mg 01/27/18 12:19 Zofran IVP Q6H PRN Nausea &/or vomiting Palonosetron 0.25 mg 01/29/18 14:45 01/29/18 15:11 Aloxi IV 01/29/18 14:46 0.25 mg O ONE Administration Pegfilgrastim 6 mg 02/01/18 20:00 02/01/18 20:03 Neulasta SQ 02/01/18 20:01 6 mg O ONE Administration Pharmacy Consult 1 each 01/27/18 14:56 Pharmacy Consult - Fall Risk [facility] 01/27/18 14:57 ONE TIME ONE Potassium Chloride 40 meq 01/27/18 08:27 01/27/18 09:32 K-Dur 20 Meq Tablet PO 01/27/18 08:28 40 meq O ONE Administration Potassium Chloride 40 meq 01/27/18 18:00 01/27/18 19:07 K-Dur 20 Meq Tablet PO 01/27/18 18:01 40 meq O ONE Administration - Constitutional no acute distress, well developed, cooperative - Routine HEENT Exam Head: Present: normocephalic Eye: Present: conjunctivae pink ENT: Present: mucous membranes moist (white patches posterior pharynx; apprears to be yeast stomatitis. No sores on tongue) Throat: tonsillar exudate (appears to be yeast stomatitis.) - Routine Neck Exam Present: supple. Absent: lymphadenopathy - Routine Respiratory Exam Present: decreased breath sounds. Absent: wheezes, crackles - Routine Cardiovascular Exam Present: RRR. Absent: no murmur - Routine Abdominal Exam Present: soft, normoactive bowel sounds. Absent: mass - Routine Extremities Exam Present: no edema, full ROM - Routine Skin Exam Present: intact, dry - Routine Neurological Exam Present: alert, oriented X3, moving all extremities, normal speech Oncology Results - Labs CBC & Chem 7: 02/02/18 03:48 02/02/18 03:48 Labs: Short CBC 02/02/18 Range/Units 03:48 WBC 2.8 L (4.5-11.0) T/MM3 Hgb 8.0 L D (12-16) GM/DL Hct 23.6 L D (36-46) % Plt Count 27 L* (130-400) T/MM3 BMP 02/02/18 03:48 Sodium 140 Potassium 3.6 Chloride 105 Carbon Dioxide 25 BUN 32.0 H Creatinine 0.8 Glucose 108 Calcium 9.5 Liver Function 02/02/18 Range/Units 03:48 Total Bilirubin 0.60 (0.20-1.30) MG/DL AST 204 H (14-36) U/L ALT 71 H (1-35) U/L Alkaline Phosphatase 178 H (38-126) U/L Albumin 3.4 L (3.5-5.0) g/dL Assessment and Plan - Time Spent With Patient Total time spent is greater than 50% in coordination of care (as documented) at patient's floor/unit and/or counseling patient: less than 15 minutes
[2018-02-02] MEDS: POLYETHYL GLYCOL 3350 17gm PACKET PO SCH (09:04)
[2018-02-02] MEDS: ALLOPURINOL 300 MG TABLET PO SCH (09:04)
[2018-02-02] MEDS: MAGNESIUM OXIDE 400 MG TABLET PO SCH (09:04)
[2018-02-02] MEDS: FLUoxetine 20 MG CAPSULE PO SCH (09:04)
[2018-02-02] MEDS: LISINOPRIL/HCTZ 10/12.5 MG TABLET PO SCH (09:04)
[2018-02-02] MEDS ORDERED: MORPHINE SULFATE 4mg INJECTION IVP PRN (09:15)
[2018-02-02] MEDS: NYSTATIN 500,000 units/5 ml ORAL LIQUID PO SCH ×5 (09:16→22:36)
--- NOTE | 2018-02-02 10:17 | Progress Note ---
- Date 02/02/18 Subjective: November is doing well and feels much better than she did compared to the day she was admitted. She's getting bored and was a little disappointed that she won't be able to go home today but understands why. She states that last night her throat/neck felt a little tight/swollen, and has noticed a bad taste in her mouth this morning. Her discomfort resolved with ibuprofen. She denies SOA or chest pain. No abdominal pain or GI complaints. She denies feeling dizzy or lightheaded. Denies paresthesias. Objective Vital signs: Temperature 97.3 F 02/02/18 08:00 Pulse Rate 101 H 02/02/18 08:00 Respiratory Rate 18 02/02/18 08:00 Blood Pressure 117/69 02/02/18 08:00 Pulse Oximetry 97 02/02/18 08:00 Height/Weight/BMI: Height 1.57 m Weight 74.3 kg Body Mass Index 31.0 - Constitutional Present: no acute distress, well nourished, well developed - Routine HEENT Exam Head: Present: normocephalic Eye: Present: PERRL. Absent: conjunctival icterus, scleral injection ENT: Absent: oropharynx clear (early thrush), dentition normal (dentures) Comments: no cervical lymphadenopathy - Routine Respiratory Exam Present: CTA bilaterally - Routine Cardiovascular Exam Present: RRR, S1, S2 - Routine Abdominal Exam Present: soft, normoactive bowel sounds, non distended, non tender - Routine Extremities Exam Present: no edema, pulses intact - Routine Musculoskeletal Exam Musculoskeletal: Present: moving extremities well - Routine Skin Exam Present: intact, dry, warm - Routine Neurological Exam Present: alert, oriented X3, CN II-XII intact, moving all extremities, vision grossly intact, hearing grossly intact, normal speech. Absent: sensory deficit , motor deficit, altered mental status, facial asymmetry - Routine Psychiatric Exam Present: normal affect, normal thought process, cooperative Results - Labs CBC & Chem 7: 02/02/18 03:48 02/02/18 03:48 Assessment and Plan (1) Orthostatic hypotension Current visit: Yes Status: Acute Assessment and Plan: Small Cell Lung Cancer -Diagnosed with bone marrow biopsy d/t risk of bleeding with low plts -BM Biopsy done on 01/27/18 showing small cell lung cancer -chemo per Dr. Lepe -Increasing uric acid; LDH 4013; concern for TLS Hypercalcemia; hyperphosphatemia -Likely 2/2 malignancy, PTH low -calcium improved; phos levels climbing Thrush -Nystatin started 02/02/18 AMS -Resolved -2/2 to hypercalcemia -CT, MRI head unremarkable Pancytopenia -Likely from marrow infiltration -Some concern for DIC with high LDH but DIC panel shows low probability of DIC -peripheral smear has leukoerythroblastic findings, bone marrow biopsy report pending -Neulasta on 02/01/18 with worsening pancytopenia noted 02/02/18. -WBC 2.8, hgb 8.0, plt 27. Transaminitis, improving -Possibly d/t mets -US with doppler noted mets but otherwise unremarkable HTN, HLD -Stable, cont. home lisinopril/HCTZ -Hold home pravastatin d/t transaminitis Hypothyroid -TSH low, Free T4 is elevated. -Decreased home Levothyroxine to 125 down to 112 mcg 01/31/18 Depression/Anxiety -Cont. home fluoxetine Resuscitation Status: Full Code - Physician Narrative Physician: Graciela Khanna MD Narrative: Date: 02/02/18 Time: 2:55 PM-I examined the patient independently. I reviewed this chart, the patient history, and the MAIL READER's/PA's documented findings as above. We discussed and formulated the assessment and plan as above with the additions below.-Dr. Khanna The patient was seen this morning in her room. She states she is feeling well. She did have some sore throat and discomfort in her neck last night but that has resolved. She is eating and drinking well. She states she has occasional shortness of breath but it improves after the breathing treatment. She will need a nebulizer and DuoNeb at home. On exam she is alert and in no acute distress. HEENT reveals oropharynx be moist without erythema. Neck is supple without lymphadenopathy. Chest reveals stridor-type lung sounds in the left lung more than the right. Abdomen is soft and nontender. Extremities are free of edema. Lab today shows hemoglobin of 8 down from 9.0. White count 2.8 down from 3.5. Platelets 27 down from 34. Phosphorus is up at 4.6. Uric acid is up at 6.5. Calcium is 9.5. 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 She tolerated chemotherapy well. She received Neulasta yesterday. Due to increase in phosphorus and uric acid and due to worsening pancytopenia, Dr. Lepe recommends that she stay in the hospital another day for close monitoring for possible tumor lysis syndrome. Patient was encouraged to drink plenty of fluids. Recheck labs tomorrow. Add MiraLAX for constipation. Hospital Course Summary Disclaimer: The visit summary below is not to be considered part of the above Progress Note. Hospital Course: 01/27/18 Pt improving with hypercalcemia tx, oncology team working on getting biopsy to get cancer dx. 01/28/18 Pt doing better with hypercalcemia tx, will back down and monitor Ca. Platelets cont. to trend down, monitor and will transfuse if <10k. Bone marrow biopsy pending. 01/29/18 Pt continues to improve but plts remain low. Prelim reports on BM biopsy shows likely small cell lung cancer, onc plans on starting chemo tx in hospital and monitor blood counts to make sure they don't drop further. Will cont. to monitor Ca levels. 01/30/18 Pt stable, has started chemo tx with , will follow blood counts and replace as necessary. Will cont. to monitor Ca levels as pt may need bisphosphonates if levels start increasing again. 01/31/18 New SCLC with mets to liver. Confirmed on iliac crest BM bx. To complete day # [address] Lepe. Decrease Synthroid. Plan to recheck thyroid labs in 4 weeks or so. Trend LFTs due to elevation. No N/V or GI c/o currently. 02/01/18 Labs appear stable. LFTS remains elevated, known hepatic mets. No GI c/o today. 02/02/18 Increasing uric acid; LDH 4013; concern for TLS calcium improved; phos levels climbing Neulasta on 02/01/18 with worsening pancytopenia noted 02/02/18. -WBC 2.8, hgb 8.0, plt 27. Start Nystatin for thrush.
[2018-02-02] MEDS ORDERED: SENNOSIDES 8.6 MG TABLET PO PRN (14:18)
[2018-02-03] MEDS: LEVOTHYROXINE 112 MCG TABLET PO SCH (06:42)
[2018-02-03] MEDS ORDERED: NS FLUSH BAG 500ml IV PRN (08:07)
[2018-02-03] MEDS: LISINOPRIL/HCTZ 10/12.5 MG TABLET PO SCH (08:40)
[2018-02-03] MEDS: LEVOFLOXACIN 500 MG TABLET PO SCH (08:40)
[2018-02-03] MEDS: MAGNESIUM OXIDE 400 MG TABLET PO SCH (08:40)
[2018-02-03] MEDS: FLUoxetine 20 MG CAPSULE PO SCH (08:41)
[2018-02-03] MEDS: ALLOPURINOL 300 MG TABLET PO SCH (08:41)
[2018-02-03] MEDS: NYSTATIN 500,000 units/5 ml ORAL LIQUID PO SCH ×4 (08:41→20:29)
[2018-02-03] MEDS: POLYETHYL GLYCOL 3350 17gm PACKET PO SCH (08:41)
[2018-02-03] MEDS: RANITIDINE 150 MG TABLET PO PRN ×3 (08:56→23:13)
--- NOTE | 2018-02-03 09:07 | XRay Report ---
INDICATION: Lung cancer PROCEDURE: CHEST 2-VIEWS UPRIGHT (PA & LAT) Encounter: Initial COMPARISON: None FINDINGS: Left hilar area lung mass measuring approximately 7.4 x 5.4 cm. Right PICC line in place with the tip in the lower SVC. Scattered left hilar area groundglass opacities. Right lung is grossly clear. Surgical clips in the right breast. No pneumothorax or effusion. Heart size is normal. Pulmonary vascularity is normal. Impression: Left hilar area mass. Underlying postobstructive atelectasis or infection cannot be excluded in this region. .
--- NOTE | 2018-02-03 09:46 | Progress Note ---
- Date 02/03/18 Subjective: Lani feels about the same today. She's bored but denies any new symptoms such as lightheadedness, dizziness, weakness, dyspnea. Her throat and mouth feel better today. She notes chronic heartburn and notices when she doesn't take her Zantac. She denies nausea/vomiting. We reviewed her lab results and she's disappointed that she won't be able to go home today but understands why. Objective Vital signs: Temperature 97.3 F 02/03/18 07:00 Pulse Rate 93 02/03/18 08:00 Respiratory Rate 18 02/03/18 07:00 Blood Pressure 101/72 02/03/18 07:39 Pulse Oximetry 95 02/03/18 07:00 Height/Weight/BMI: Height 1.57 m Weight 73 kg Body Mass Index 31.0 - Constitutional Present: no acute distress, well nourished, well developed - Routine HEENT Exam Head: Present: normocephalic Eye: Present: PERRL. Absent: conjunctival icterus, scleral injection ENT: Present: mucous membranes moist. Absent: oropharynx clear (thrush improving), dentition normal (dentures in place) Comments: mild anterior cervical lymphadenopathy - Routine Respiratory Exam Present: CTA bilaterally - Routine Cardiovascular Exam Present: RRR, S1, S2 - Routine Abdominal Exam Present: soft, normoactive bowel sounds, non distended, non tender - Routine Extremities Exam Present: no edema - Routine Back/Spine/Pelvis Exam Back/Spine: Present: full ROM - Routine Musculoskeletal Exam Musculoskeletal: Present: moving extremities well - Routine Skin Exam Present: intact, dry, warm, ecchymosis (arms - lab draws) - Routine Neurological Exam Present: alert, oriented X3, CN II-XII intact, normal speech - Routine Psychiatric Exam Present: normal affect, normal thought process, cooperative Results - Labs CBC & Chem 7: 02/03/18 14:18 02/03/18 04:54 Assessment and Plan (1) Orthostatic hypotension Current visit: Yes Status: Acute Assessment and Plan: Small Cell Lung Cancer -Diagnosed with bone marrow biopsy d/t risk of bleeding with low plts -BM Biopsy done on 01/27/18 showing small cell lung cancer -chemo per Dr. Lepe -Increasing uric acid [6.7]; LDH 4072; concern for TLS Neutropenia/pancytopenia -ANC 912, placed in neutropenic precautions on 02/03 -D/W Dr. Lepe: start prophylactic Levaquin 500 mg PO daily on 02/03 -WBC 1.9, hgb 7.3, plt 21. -PRBC transfusion x1 unit. -Likely from marrow infiltration -Some concern for DIC with high LDH but DIC panel shows low probability of DIC -peripheral smear with leukoerythroblastic findings, bone marrow biopsy report pending -Neulasta on 02/01/18 with worsening pancytopenia noted 02/02/18 & 02/03/18. Hypercalcemia; hyperphosphatemia -Likely 2/2 malignancy, PTH low -calcium improved; phos levels climbing, up to 4.9 Thrush, improving -Nystatin started 02/02/18 AMS -Resolved -2/2 to hypercalcemia -CT, MRI head unremarkable Transaminitis, improving -Possibly d/t mets -US with doppler noted mets but otherwise unremarkable HTN, HLD -Stable, cont. home lisinopril/HCTZ -Hold home pravastatin d/t transaminitis Hypothyroid -TSH low, Free T4 is elevated. -Decreased home Levothyroxine to 125 down to 112 mcg 01/31/18 Depression/Anxiety -Cont. home fluoxetine Hypotension -The patient had hypotension 02/03/2018 that did not resolve after transfusion of 1 unit of blood. We'll give 500 cc normal saline bolus and recheck orthostatic vitals then. We'll also place a hold on lisinopril/ hydrochlorothiazide and recheck lab and vitals tomorrow and decide if that should be restarted then. DVT Prophylaxis: SCD's GI Prophylaxis: Rantidine Resuscitation Status: Full Code - Physician Narrative Physician: Graciela Khanna MD Narrative: Date: 02/03/18 Time: 4:15 PM The patient was seen this afternoon in her room. Lab work this morning unfortunately showed her hemoglobin had decreased to 7.3. White count had decreased to 1.9. Platelets had decreased to 21. Basic metabolic profile was fairly stable. AST, LT and alkaline phosphatase were all decreased. Phosphorus and uric acid were mildly increased. The patient states she feels okay other than she is lightheaded when she stands up. She was given 1 unit of blood today , but after she received the blood transfusion she still feels lightheaded when she stands up and blood pressure was 89/58 standing this afternoon. Otherwise, she is feeling well. She is eating and drinking well. She is urinating without difficulties. She has finally had a couple of bowel movements and no longer feels constipated. On exam she is alert and oriented and in no acute distress. Chest is clear to auscultation. Cardiovascular reveals a regular rate and rhythm. Abdomen is soft and nontender. Extremities are free of edema. Skin is warm and dry, she has some bruising. Impression and plan Due to Worsening pancytopenia today, the patient will need to continue to be monitored in the hospital overnight and recheck labs tomorrow. She was given 1 unit of blood for anemia and she was started on Levaquin for leukopenia, as recommended by Dr. Lepe. Continue to monitor for tumor lysis syndrome. The patient did have a slight increase in phosphorus and uric acid today. Hypercalcemia has resolved and calcium continues to decline. Regarding symptomatic orthostatic hypotension, it did not resolve with transfusion. We'll give 500 cc normal saline bolus now and recheck vitals afterwards. We'll hold lisinopril hydrochlorothiazide for now and recheck vitals and labs tomorrow and determine if it should be resumed. Hospital Course Summary Disclaimer: The visit summary below is not to be considered part of the above Progress Note. Hospital Course: 01/27/18 Pt improving with hypercalcemia tx, oncology team working on getting biopsy to get cancer dx. 01/28/18 Pt doing better with hypercalcemia tx, will back down and monitor Ca. Platelets cont. to trend down, monitor and will transfuse if <10k. Bone marrow biopsy pending. 01/29/18 Pt continues to improve but plts remain low. Prelim reports on BM biopsy shows likely small cell lung cancer, onc plans on starting chemo tx in hospital and monitor blood counts to make sure they don't drop further. Will cont. to monitor Ca levels. 01/30/18 Pt stable, has started chemo tx with , will follow blood counts and replace as necessary. Will cont. to monitor Ca levels as pt may need bisphosphonates if levels start increasing again. 01/31/18 New SCLC with mets to liver. Confirmed on iliac crest BM bx. To complete day # [address] Lepe. Decrease Synthroid. Plan to recheck thyroid labs in 4 weeks or so. Trend LFTs due to elevation. No N/V or GI c/o currently. 02/01/18 Labs appear stable. LFTS remains elevated, known hepatic mets. No GI c/o today. 02/02/18 Increasing uric acid; LDH 4013; concern for TLS calcium improved; phos levels climbing Neulasta on 02/01/18 with worsening pancytopenia noted 02/02/18. -WBC 2.8, hgb 8.0, plt 27. Start Nystatin for thrush. 02/03/18 Increasing uric acid [6.7]; LDH 4072; phos levels climbing, up to 4.9; concern for TLS ANC 912, placed in neutropenic precautions on 02/03 -D/W Dr. Lepe: start prophylactic Levaquin 500 mg PO daily on 02/03 WBC 1.9, hgb 7.3, plt 21. PRBC transfusion x1 unit.
--- NOTE | 2018-02-03 12:29 | Progress Note ---
<Casandra Kenyon L - Last Filed: 02/03/18 12:22> Oncology Subjective Reclining in hospital bed, alone in room. Alert and oriented. Complains of fatigue/weakness today. Denies pain currently. No cough or shortness of air. Is eating and drinking normally. Throat feels improved. Voiding normally. Good bowel movement early this morning. General: No fever, no night sweats Eyes: No redness, no pain, no diplopia ENT: Mouth less sore, swallowing improved. Cardiac: No chest pain no palpitations Pulmonary: No cough, no shortness of breath, no wheezing Abdomen: No pain, no nausea vomiting, good, normal BM today. : No urgency, frequency, dysuria, or hematuria Musculoskeletal: Verbalized weakness. Myalgias. Neurological: No headaches, no focal weakness Skin: No rash, no sores Psychiatric: No anxiety, no depression Exam Vital signs: Temperature 97.3 F 02/03/18 07:00 Pulse Rate 93 02/03/18 08:00 Respiratory Rate 18 02/03/18 07:00 Blood Pressure 101/72 02/03/18 07:39 Pulse Oximetry 95 02/03/18 07:00 Narrative: Generic Name Dose Route Start Last Admin Trade Name Freq PRN Reason Stop Dose Admin Acetaminophen 650 mg 02/01/18 19:02 02/02/18 22:36 Tylenol PO 650 mg Q6H PRN Administration Pain Albuterol/Ipratropium 3 ml 01/27/18 14:23 02/02/18 03:54 Duoneb AEROSOL 3 ml Q6H PRN Administration Allopurinol 300 mg 01/28/18 22:00 02/03/18 08:41 Zyloprim PO 300 mg DAILY DELICIA Administration Diphenhydramine HCl 50 mg 01/29/18 15:17 Benadryl IVP PRN PRN Fluoxetine HCl 20 mg 01/28/18 09:00 02/03/18 08:41 Prozac PO 20 mg DAILY DELICIA Administration Guaifenesin 400 mg 01/27/18 14:24 02/01/18 00:07 Robitussin Liq PO 400 mg Q4H PRN Administration Cough /Congestion Lisinopril/HCTZ 1 tab 01/28/18 09:00 02/03/18 08:40 Prinzide 06/05.5 PO 1 tab DAILY DELICIA Administration Hydrocortisone Sodium Succinate 100 mg 01/29/18 15:19 Solu-Cortef IVP PRN PRN Levofloxacin 500 mg 02/03/18 08:08 02/03/18 08:40 Levaquin PO 500 mg ACB DELICIA Administration Levothyroxine Sodium 112 mcg 02/03/18 06:30 02/03/18 06:42 Synthroid PO 112 mcg ACB DELICIA Administration Magnesium Oxide 200 mg 01/28/18 09:00 02/03/18 08:40 Magox PO 200 mg DAILY DELICIA Administration Methylprednisolone Sodium Succinate 125 mg 01/29/18 15:19 Solu-Medrol IVP PRN PRN Morphine Sulfate 2 - 4 mg 02/02/18 09:15 Morphine Sulfate Inj IVP Q3H PRN Pain Nystatin 5 ml 02/02/18 13:00 02/03/18 08:41 Mycostatin PO 5 ml QID DELICIA Administration Ondansetron HCl 4 mg 01/27/18 12:39 01/27/18 19:06 Zofran Odt Tablet PO 4 mg Q4H PRN Administration Nausea &/or vomiting Polyethylene Glycol 17 gm 02/02/18 09:00 02/03/18 08:41 Miralax PO 17 gm DAILY DELICIA Administration Prochlorperazine Edisylate 10 mg 01/27/18 12:39 01/31/18 14:02 Compazine Iv IVP 10 mg Q6H PRN Administration Nausea &/or vomiting Ranitidine HCl 150 mg 01/29/18 14:56 02/03/18 08:56 Zantac PO 150 mg BID PRN Administration Senna 8.6 - 17.2 mg 02/02/18 14:18 02/02/18 15:58 Senna Lax PO 17.2 mg BID PRN Administration Constipation Sodium Chloride 10 - 80 ml 01/27/18 04:34 01/31/18 13:56 Iv Flush IV 40 ml PRN PRN Administration Flushing Sodium Chloride 500 ml 01/28/18 10:33 01/31/18 13:35 Normal Saline IV 500 ml PRN PRN Administration Sodium Chloride 500 ml 02/03/18 08:07 Normal Saline IV PRN PRN Discontinued Medications Generic Name Dose Route Start Last Admin Trade Name Freq PRN Reason Stop Dose Admin Calcitonin [place] 0 unit 01/26/18 21:00 Miacalcin SQ Q12HR DELICIA Calcitonin [place] 300 unit 01/26/18 18:00 01/30/18 09:35 Miacalcin SQ 01/30/18 23:00 300 unit Q12HR DELICIA Administration Sodium Chloride 1,000 mls @ 200 mls/hr 01/26/18 14:30 01/27/18 19:00 Normal Saline IV Infused .Q5H DELICIA Infusion Sodium Chloride 1,000 mls @ 999.9 mls/hr 01/26/18 15:00 01/26/18 17:31 Normal Saline IV 01/26/18 16:00 Not Given .Q1H DELICIA Magnesium Sulfate/Dextrose 1 gm in 100 mls @ 100 mls/hr 01/28/18 08:56 14:03 Mag Sulf 1gm Premix IV 01/28/18 11:55 Infused Q1H DELICIA Infusion Dexamethasone 10 mg/ Sodium 52.5 mls @ 210 mls/hr 01/29/18 15:00 01/29/18 16: 18 Chloride IV 01/29/18 15:14 Infused O ONE Infusion Fosaprepitant 150 mg/ Sodium 145 mls @ 290 mls/hr 01/29/18 15:00 01/29/18 15: 42 Chloride IV 01/29/18 15:29 Infused O ONE Infusion Carboplatin 732 mg/ Sodium 323.2 mls @ 330 mls/hr 01/29/18 15:30 01/29/18 17: 39 Chloride IV 01/29/18 16:28 Infused O ONE Infusion Etoposide 175 mg/ Sodium 508.75 mls @ 300 mls/hr 01/29/18 16:30 01/29/18 20: 14 Chloride IV 01/29/18 18:11 Infused O ONE Infusion Etoposide 175 mg/ Sodium 508.75 mls @ 300 mls/hr 01/30/18 16:30 01/30/18 18: 30 Chloride IV 01/31/18 18:12 Infused 1630 DELICIA Infusion Dexamethasone 10 mg/ Sodium 52.5 mls @ 210 mls/hr 01/30/18 16:00 01/30/18 16: 06 Chloride IV 01/31/18 16:14 Infused 1600 DELICIA Infusion Dexamethasone 10 mg/ Sodium 52.5 mls @ 210 mls/hr 01/31/18 13:30 01/31/18 13: 53 Chloride IV 01/31/18 13:44 Infused 1330 DELICIA Infusion Etoposide 175 mg/ Sodium 508.75 mls @ 300 mls/hr 01/31/18 14:00 01/31/18 16: 00 Chloride IV 01/31/18 15:42 Infused 1400 DELICIA Infusion Levothyroxine Sodium 125 mcg 01/27/18 13:45 01/31/18 06:15 Synthroid PO 125 mcg ACB DELICIA Administration Levothyroxine Sodium 112 mcg 01/31/18 12:15 02/02/18 05:32 Synthroid PO 112 mcg ACB DELICIA Administration Morphine Sulfate 2 - 4 mg 01/27/18 18:56 01/27/18 19:06 Morphine Sulf 2 Mg Inj IVP 2 mg Q3-4HR PRN Administration Pain Morphine Sulfate 2 - 4 mg 01/28/18 06:45 01/28/18 18:38 Morphine Sulfate Inj IVP 4 mg Q3-4HR PRN Administration Pain Olanzapine 2.5 mg 01/29/18 15:15 01/29/18 16:02 Zyprexa PO 01/29/18 15:16 2.5 mg O ONE Administration Olanzapine 2.5 mg 01/30/18 09:00 02/01/18 08:57 Zyprexa PO 02/01/18 09:01 2.5 mg DAILY DELICIA Administration Ondansetron HCl 4 mg 01/27/18 12:19 Zofran IVP Q6H PRN Nausea &/or vomiting Palonosetron 0.25 mg 01/29/18 14:45 01/29/18 15:11 Aloxi IV 01/29/18 14:46 0.25 mg O ONE Administration Pegfilgrastim 6 mg 02/01/18 20:00 02/01/18 20:03 Neulasta SQ 02/01/18 20:01 6 mg O ONE Administration Pharmacy Consult 1 each 01/27/18 14:56 Pharmacy Consult - Fall Risk [facility] 01/27/18 14:57 ONE TIME ONE Potassium Chloride 40 meq 01/27/18 08:27 01/27/18 09:32 K-Dur 20 Meq Tablet PO 01/27/18 08:28 40 meq O ONE Administration Potassium Chloride 40 meq 01/27/18 18:00 01/27/18 19:07 K-Dur 20 Meq Tablet PO 01/27/18 18:01 40 meq O ONE Administration - Constitutional no acute distress, well nourished, well developed, cooperative - Routine HEENT Exam Head: Present: normocephalic Eye: Present: EOMI ENT: Present: mucous membranes moist (no mouth sores or exudate noted today.) - Routine Neck Exam Present: supple. Absent: lymphadenopathy - Routine Respiratory Exam Present: decreased breath sounds. Absent: wheezes, crackles - Routine Cardiovascular Exam Present: RRR, no murmur - Routine Abdominal Exam Present: soft, non tender. Absent: mass - Routine Extremities Exam Present: no edema - Routine Back/Spine/Pelvis Exam Back/Spine: Absent: vertebral tenderness - Routine Skin Exam Present: intact, dry. Absent: rash - Routine Neurological Exam Present: alert, oriented X3 - Routine Psychiatric Exam Present: normal affect, cooperative Oncology Results - Labs CBC & Chem 7: 02/03/18 04:54 02/03/18 04:54 Labs: Short CBC 02/03/18 Range/Units 04:54 WBC 1.9 L* (4.5-11.0) T/MM3 Hgb 7.3 L (12-16) GM/DL Hct 21.4 L (36-46) % Plt Count 21 L* (130-400) T/MM3 BMP 02/03/18 04:54 Sodium 139 Potassium 3.8 Chloride 103 Carbon Dioxide 27 BUN 25.0 H Creatinine 0.7 Glucose 116 H Calcium 9.3 Liver Function 02/03/18 Range/Units 04:54 Total Bilirubin 0.70 (0.20-1.30) MG/DL AST 191 H (14-36) U/L ALT 67 H (1-35) U/L Alkaline Phosphatase 157 H (38-126) U/L Albumin 3.4 L (3.5-5.0) g/dL - Impressions Date of Exam: 02/03/18 Ordering Provider: Ash Lepe MD Type of Exam(s): XR chest 2V Reason for Exam(s): Lung cancer INDICATION: Lung cancer PROCEDURE: CHEST 2-VIEWS UPRIGHT (PA & LAT) Encounter: Initial COMPARISON: None FINDINGS: Left hilar area lung mass measuring approximately 7.4 x 5.4 cm. Right PICC line in place with the tip in the lower SVC. Scattered left hilar area groundglass opacities. Right lung is grossly clear. Surgical clips in the right breast. No pneumothorax or effusion. Heart size is normal. Pulmonary vascularity is normal. Impression: Left hilar area mass. Underlying postobstructive atelectasis or infection cannot be excluded in this region. . Assessment and Plan Assessment and Plan: Extensive stage small cell lung cancer. Began chemotherapy on 01/29/18. Tolerated well. Day 3 therapy 01/31. . Uric acid is slightly higher today at 6.5 on02/02. 5.8 on 01/31. LDH is 4146 on 02/01. 4013 on 02/02. Phosphorus is higher this morning. This suggest mild evidence of tumor lysis. Treatment carboplatinum AUC of 5 on day 1, etoposide 100 mg per meter squared IV day 1, 2, 3. Neulasta given 02/01. WBC 1.9. Prophylactic Levaquin started today. Hyperphosphatemia on 01/29/18. Normalized on 01/30/18 in 01/31/18. High on 02/02/18 at 4.6, today phosphorus levels 4.9 Hyperthyroidism with elevated free T4. Levothyroxine dose has been reduced. Thrombocytopenia. Platelets 20 1K today. Continue to follow closely. Anemia. Hgb 7.3 today, subjectively with severe weakness. Transfusion 1 unit PRBCs infusing currently Recommendations: Continue supportive care, follow labs. Receiving 1 unit packed RBCs now. Prophylactic Levaquin started. Continue nystatin. Discussed when dismissed to home, importance of healthy nutritional intake, 3 meals, two protein snacks, be sure is getting adequate fluids, walk daily. Asked about returning to work this week. Recommend not work this week secondary to counts and infection risk. Will see her next week in [place]. - Time Spent With Patient Total time spent is greater than 50% in coordination of care (as documented) at patient's floor/unit and/or counseling patient: 25 - 35 minutes <Ash Lepe - Last Filed: 02/03/18 19:29> Exam Vital signs: Temperature 98.0 F 02/03/18 15:00 Pulse Rate 103 H 02/03/18 19:14 Respiratory Rate 18 02/03/18 15:00 Blood Pressure 108/72 02/03/18 19:14 Pulse Oximetry 97 02/03/18 15:00 Oncology Results - Labs CBC & Chem 7: 02/03/18 14:18 02/03/18 04:54 Labs: Short CBC 02/03/18 02/03/18 Range/Units 04:54 14:18 WBC 1.9 L* (4.5-11.0) T/MM3 Hgb 7.3 L 8.3 L D (12-16) GM/DL Hct 21.4 L (36-46) % Plt Count 21 L* (130-400) T/MM3 BMP 02/03/18 04:54 Sodium 139 Potassium 3.8 Chloride 103 Carbon Dioxide 27 BUN 25.0 H Creatinine 0.7 Glucose 116 H Calcium 9.3 Liver Function 02/03/18 Range/Units 04:54 Total Bilirubin 0.70 (0.20-1.30) MG/DL AST 191 H (14-36) U/L ALT 67 H (1-35) U/L Alkaline Phosphatase 157 H (38-126) U/L Albumin 3.4 L (3.5-5.0) g/dL Assessment and Plan Assessment and Plan: Patient seen Chart Reviewed. I participated in the development of the plan of care of this patient in conjunction with Shannan Kenyon. Starting to get neutropenic. Platelets lower. Will follow closely. - Time Spent With Patient Total time spent is greater than 50% in coordination of care (as documented) at patient's floor/unit and/or counseling patient:
[2018-02-03] MEDS: SALINE FLUSH 10ml SYRINGE IV PRN (20:30)
[2018-02-04] MEDS: LEVOTHYROXINE 112 MCG TABLET PO SCH (05:50)
[2018-02-04] MEDS: LEVOFLOXACIN 500 MG TABLET PO SCH (05:50)
[2018-02-04] MEDS ORDERED: NS FLUSH BAG 500ml IV PRN ×3 (06:02→08:41)
[2018-02-04] MEDS ORDERED: MAG-AL + SIM ORAL LIQUID 30ml PO PRN (08:38)
[2018-02-04] MEDS ORDERED: ALTEPLASE (Cathflo*) 2mg INJECTION IV ONE (09:32)
[2018-02-04] MEDS ORDERED: .WATER FOR INJECTION,STERILE 10 ML VIAL INJ ONE (09:35)
[2018-02-04] MEDS: NYSTATIN 500,000 units/5 ml ORAL LIQUID PO SCH ×4 (09:43→20:14)
[2018-02-04] MEDS: MAGNESIUM OXIDE 400 MG TABLET PO SCH (09:43)
[2018-02-04] MEDS: PANTOPRAZOLE 20 MG TABLET PO SCH ×2 (09:43→17:54)
[2018-02-04] MEDS: ALLOPURINOL 300 MG TABLET PO SCH (09:43)
[2018-02-04] MEDS: FLUoxetine 20 MG CAPSULE PO SCH (09:44)
[2018-02-04] MEDS: POLYETHYL GLYCOL 3350 17gm PACKET PO SCH (10:49)
--- NOTE | 2018-02-04 12:40 | Progress Note ---
- Date 02/04/18 Subjective: Lani is seen today in follow-up. She is feeling fairly well. Currently getting a transfusion of platelets, to be followed by PRBCs. Discussed with her concern for lower blood counts, and need to rule out GI bleeding. Dr. Khanna had requested stool for Hemoccult, and is recommending a rectal exam to obtain stool. Lani reports that she had a large stool this morning, but does not feel that she will be able to have stool in the near future. She is agreeable to having rectal exam by this provider. Risk of rectal bleeding due to low platelets was discussed prior to exam. I did offer to allow her to wait and see if she could have a stool this afternoon, but she opted to proceed with rectal exam instead for earlier result. Please note the chart was reviewed for collateral information. Objective Vital signs: Temperature 96.7 F L 02/04/18 07:45 Pulse Rate 87 02/04/18 08:00 Respiratory Rate 16 02/04/18 07:45 Blood Pressure 107/64 02/04/18 07:49 Pulse Oximetry 95 02/04/18 07:45 Height/Weight/BMI: Height 1.57 m Weight 74.4 kg Body Mass Index 31.0 Comments: Gen.: Patient is awake, alert, oriented. Neck: Supple. Cardiovascular: S1, S2. Regular rate and rhythm. No edema. Pulmonary: Lungs are diminished on the left. She is not short of breath. No wheezes appreciated. Abdomen: Soft, nontender, nondistended. Bowel sounds are present 4 quadrants. : Rectal exam was completed, MILTON Monsivais presents throughout exam. Soft stool easily appreciated in the rectal vault, small sample obtained, applied to guaiac card. RN to send to lab. No visible blood on stool obtained from exam. Patient tolerated well, no acute evidence of bleeding post exam. Extremities: No edema, no cyanosis or clubbing. Skin: Warm and pink. Results - Labs CBC & Chem 7: 02/04/18 04:20 02/04/18 04:20 - Imaging and Cardiology Chest x-ray Additional comments: Impression: Left hilar area mass. Underlying postobstructive atelectasis or infection cannot be excluded in this region. . Assessment and Plan (1) Orthostatic hypotension Current visit: Yes Status: Acute Assessment and Plan: Small Cell Lung Cancer -Diagnosed with bone marrow biopsy d/t risk of bleeding with low plts -BM Biopsy done on 01/27/18 showing small cell lung cancer -chemo per Dr. Lepe -Decreasing uric acid & LDH; monitoring due to concern for TLS Neutropenia/pancytopenia -ANC 700 (down from 912), placed in neutropenic precautions on 02/03 -D/W Dr. Lepe: start prophylactic Levaquin 500 mg PO daily on 02/03 -Ongoing anemia, thrombocytopenia-worsened today. -PRBC & platelet transfusion again today. -Likely from marrow infiltration -Some concern for DIC with high LDH but DIC panel shows low probability of DIC -peripheral smear with leukoerythroblastic findings, bone marrow biopsy report pending -Neulasta on 02/01/18 with worsening pancytopenia noted 02/02/18 & 02/03/18. *Concern for GI bleed. H2RB changed to PPI. Rectal exam for FOB. Hemoccult negative for bleeding. Hypercalcemia; hyperphosphatemia -Likely 2/2 malignancy, PTH low -calcium normalized -Phosphorus trending down. Thrush, improving -Nystatin started 02/02/18 AMS -Resolved -2/2 to hypercalcemia -CT, MRI head unremarkable Transaminitis, improving -Possibly d/t mets -US with doppler noted mets but otherwise unremarkable -LFT's still elevated, but stable. HTN, HLD -Stable, stop home lisinopril/HCTZ due to lower BP -Hold home pravastatin d/t transaminitis Hypothyroid -TSH low, Free T4 is elevated. -Decreased home Levothyroxine to 125 down to 112 mcg 01/31/18 Depression/Anxiety -Cont. home fluoxetine Hypotension -improved, but still low normal. Continues to require transfusions. Hold lisinopril/HCTZ for now and observe BP. DVT Prophylaxis: SCD's GI Prophylaxis: Protonix Resuscitation Status: Full Code - Physician Narrative Physician: Graciela Khanna MD Narrative: Date: 02/04/18 Time: 4:30 PM--I examined the patient independently. I reviewed this chart, the patient history, and the FACILITATOR's/PA's documented findings as above. We discussed and formulated the assessment and plan as above with the additions below.-Dr. Khanna The patient was seen this afternoon in her room. She states she's feeling okay. She had some heartburn yesterday but none today. She was feeling constipated but had some good bowel movements today and no longer has abdominal discomfort. She denies lightheadedness. She states her breathing is much better over the past several days. She has not noticed any bloody stools or dark tarry stools. She is eating okay. On exam she is alert and in no acute distress. Mood is upbeat. Chest is clear to auscultation. Cardiovascular reveals a regular rate and rhythm. Abdomen is soft and nontender. Extremities are free of edema. Hemoccult stool was negative. Impression and plan Pancytopenia with drop in platelets today. She received 1 unit platelet transfusion this morning. Hemoglobin dropped as well to 7.2. I discussed her anemia with Dr. Lepe and he recommended 2 units of blood today. We will repeat a CBC after blood has been transfused. Orthostatic hypotension seems to have improved. Fosinopril and hydrochlorothiazide are on hold. Protonix was initiated for indigestion/heartburn. Hypercalcemia has resolved. Regarding small cell lung cancer, LDH is decreasing. Liver enzymes are decreasing post chemotherapy. Continue to monitor here in the hospital closely. Recheck CBC and basic metabolic profile tomorrow. Hospital Course Summary Disclaimer: The visit summary below is not to be considered part of the above Progress Note. Hospital Course: 01/27/18 Pt improving with hypercalcemia tx, oncology team working on getting biopsy to get cancer dx. 01/28/18 Pt doing better with hypercalcemia tx, will back down and monitor Ca. Platelets cont. to trend down, monitor and will transfuse if <10k. Bone marrow biopsy pending. 01/29/18 Pt continues to improve but plts remain low. Prelim reports on BM biopsy shows likely small cell lung cancer, onc plans on starting chemo tx in hospital and monitor blood counts to make sure they don't drop further. Will cont. to monitor Ca levels. 01/30/18 Pt stable, has started chemo tx with , will follow blood counts and replace as necessary. Will cont. to monitor Ca levels as pt may need bisphosphonates if levels start increasing again. 01/31/18 New SCLC with mets to liver. Confirmed on iliac crest BM bx. To complete day # [address] Lepe. Decrease Synthroid. Plan to recheck thyroid labs in 4 weeks or so. Trend LFTs due to elevation. No N/V or GI c/o currently. 02/01/18 Labs appear stable. LFTS remains elevated, known hepatic mets. No GI c/o today. 02/02/18 Increasing uric acid; LDH 4013; concern for TLS calcium improved; phos levels climbing Neulasta on 02/01/18 with worsening pancytopenia noted 02/02/18. -WBC 2.8, hgb 8.0, plt 27. Start Nystatin for thrush. 02/03/18 Increasing uric acid [6.7]; LDH 4072; phos levels climbing, up to 4.9; concern for TLS ANC 912, placed in neutropenic precautions on 02/03 -D/W Dr. Lepe: start prophylactic Levaquin 500 mg PO daily on 02/03 WBC 1.9, hgb 7.3, plt 21. PRBC transfusion x1 unit. 02/04/18 Improving LDH, uric acid. Continue to observe for TLS ANC trending down- continue neutropenic precautions. FOB negative. Continue PPI. Platelets, PRBCs given. continue to observe closely due to abnormal labs.
[2018-02-04] MEDS: SALINE FLUSH 10ml SYRINGE IV PRN (15:46)
--- NOTE | 2018-02-04 19:39 | Progress Note ---
Oncology Subjective Doing better. Knows counts are all low. Received blood. Exam Vital signs: Temperature 98.2 F 02/04/18 15:48 Pulse Rate 97 02/04/18 16:00 Respiratory Rate 18 02/04/18 15:48 Blood Pressure 122/69 02/04/18 15:48 Pulse Oximetry 95 02/04/18 15:48 - Constitutional no acute distress, well nourished - Routine HEENT Exam Head: Present: normocephalic, atraumatic Eye: Present: EOMI, PERRL - Routine Respiratory Exam Present: CTA bilaterally. Absent: crackles - Routine Cardiovascular Exam Present: RRR, no murmur - Routine Abdominal Exam Present: soft, normoactive bowel sounds - Routine Extremities Exam Absent: cyanosis, clubbing, edema - Routine Neurological Exam Present: alert, oriented X3, CN II-XII intact - Routine Psychiatric Exam Present: normal affect, normal thought process Oncology Results - Labs CBC & Chem 7: 02/04/18 04:20 02/04/18 04:20 Labs: Short CBC 02/04/18 Range/Units 04:20 WBC 1.9 L* (4.5-11.0) T/MM3 Hgb 7.2 L D (12-16) GM/DL Hct 20.8 L (36-46) % Plt Count 12 L* D (130-400) T/MM3 BMP 02/04/18 04:20 Sodium 138 Potassium 3.7 Chloride 103 Carbon Dioxide 26 BUN 26.0 H Creatinine 0.6 L Glucose 121 H Calcium 8.8 Liver Function 02/04/18 Range/Units 04:20 Total Bilirubin 0.70 (0.20-1.30) MG/DL AST 149 H (14-36) U/L ALT 58 H (1-35) U/L Alkaline Phosphatase 160 H (38-126) U/L Albumin 3.3 L (3.5-5.0) g/dL Assessment and Plan Assessment and Plan: Extensive stage small cell lung cancer. Began chemotherapy on 01/29/18. Tolerated well. Day 3 therapy 01/31. .LDH better. Creat, K+, bili normal Treatment carboplatinum AUC of 5 on day 1, etoposide 100 mg per meter squared IV day 1, 2, 3. Neulasta given 02/01. WBC 1.9. Prophylactic Levaquin started. Phos nl Hyperthyroidism with elevated free T4. Levothyroxine dose has been reduced. Thrombocytopenia. plts 12, given today. Anemia. Hgb 7.3 today, subjectively with severe weakness. Transfusion today Recommendations: Continue supportive care, follow labs. Prophylactic Levaquin started. Continue nystatin. Breathing improved since chemo. Home Medications Calcium Carbonate [Calcium] 615 mg PO DAILY 01/26/18 [History Confirmed 01/26/18 ] ClonazePAM [Klonopin] 0.5 mg PO DAILY PRN 01/26/18 [History Confirmed 01/26/18] Ergocalciferol (Vitamin D2) [Vitamin D2] 2 tab PO DAILY 01/26/18 [History Confirmed 01/26/18] FLUoxetine [Prozac] 1 cap PO DAILY 01/26/18 [History Confirmed 01/26/18] Fenofibrate Nanocrystallized [Fenofibrate] 1 tab PO HS 01/26/18 [History Confirmed 01/26/18] Levothyroxine Sodium [Levothyroxine Sodium] 1 tab PO DAILY 01/26/18 [History Confirmed 01/26/18] Lisinopril/Hctz 10/12.5 [Prinzide 10/12.5] 1 tab PO DAILY 01/26/18 [History Confirmed 01/26/18] Magnesium 250 mg PO DAILY 01/26/18 [History Confirmed 01/26/18] Pravastatin [Pravachol] 2 tab PO HS 01/26/18 [History Confirmed 01/26/18] Ubidecarenone/Vitamin E [Co Q-10 50 mg Softgel] 1 tab PO DAILY 01/26/18 [ History Confirmed 01/26/18] Zinc 50 mg PO DAILY 01/26/18 [History Confirmed 01/26/18] Active Medications Acetaminophen (Tylenol) 650 mg PO Q6H PRN PRN Reason: Pain Last Admin: 02/02/18 22:36 Dose: 650 mg Al Hydroxide/Mg Hydroxide (Maalox Plus) 30 ml PO Q6H PRN PRN Reason: Indigestion Albuterol/Ipratropium (Duoneb) 3 ml AEROSOL Q6H PRN Last Admin: 02/02/18 03:54 Dose: 3 ml Allopurinol (Zyloprim) 300 mg PO DAILY [facility] Last Admin: 02/04/18 09:43 Dose: 300 mg Diphenhydramine HCl (Benadryl) 50 mg IVP PRN PRN Fluoxetine HCl (Prozac) 20 mg PO DAILY [facility] Last Admin: 02/04/18 09:44 Dose: 20 mg Guaifenesin (Robitussin Liq) 400 mg PO Q4H PRN PRN Reason: Cough /Congestion Last Admin: 02/01/18 00:07 Dose: 400 mg Lisinopril/HCTZ (Prinzide 06/05.) 1 tab PO DAILY [facility] Last Admin: 02/03/18 08:40 Dose: 1 tab Hydrocortisone Sodium Succinate (Solu-Cortef) 100 mg IVP PRN PRN Levofloxacin (Levaquin) 500 mg PO ACB [facility] Last Admin: 02/04/18 05:50 Dose: 500 mg Levothyroxine Sodium (Synthroid) 112 mcg PO B [facility] Last Admin: 02/04/18 05:50 Dose: 112 mcg Magnesium Oxide (Magox) 200 mg PO DAILY [facility] Last Admin: 02/04/18 09:43 Dose: 200 mg Methylprednisolone Sodium Succinate (Solu-Medrol) 125 mg IVP PRN PRN Morphine Sulfate (Morphine Sulfate Inj) 2 - 4 mg IVP Q3H PRN PRN Reason: Pain Nystatin (Mycostatin) 5 ml PO QID [facility] Last Admin: 02/04/18 17:54 Dose: 5 ml Ondansetron HCl (Zofran Odt Tablet) 4 mg PO Q4H PRN PRN Reason: Nausea &/or vomiting Last Admin: 01/27/18 19:06 Dose: 4 mg Pantoprazole Sodium (Protonix) 20 mg PO ACBID [facility] Last Admin: 02/04/18 17:54 Dose: 20 mg Polyethylene Glycol (Miralax) 17 gm PO DAILY [facility] Last Admin: 02/04/18 10:49 Dose: Not Given Prochlorperazine Edisylate (Compazine Iv) 10 mg IVP Q6H PRN PRN Reason: Nausea &/or vomiting Last Admin: 01/31/18 14:02 Dose: 10 mg Senna (Senna Lax) 8.6 - 17.2 mg PO BID PRN PRN Reason: Constipation Last Admin: 02/02/18 15:58 Dose: 17.2 mg Sodium Chloride (Iv Flush) 10 - 80 ml IV PRN PRN PRN Reason: Flushing Last Admin: 02/04/18 15:46 Dose: 20 ml Sodium Chloride (Normal Saline) 500 ml IV PRN PRN Last Admin: 01/31/18 13:35 Dose: 500 ml Sodium Chloride (Normal Saline) 500 ml IV PRN PRN Laboratory Results - last 72 hr 02/02/18 02/02/18 02/03/18 03:48 03:48 04:54 WBC 2.8 L 1.9 L* RBC 2.73 L 2.52 L Hgb 8.0 L D 7.3 L Hct 23.6 L D 21.4 L MCV 86.4 84.9 MCH 29.3 29.0 MCHC 33.9 34.1 RDW Std Deviation 41.0 39.1 Plt Count 27 L* 21 L* MPV 12.4 Not performed Immature Gran % (Auto) Not performed [employer] Neut % (Auto) Not performed [employer] Lymph % (Auto) Not performed [employer] [place] % (Auto) Not performed [employer] Eos % (Auto) Not performed [employer] Baso % (Auto) Not performed [employer] Neut # (Auto) Not performed [employer] Lymph # (Auto) Not performed [employer] [place] # (Auto) Not performed [employer] Eos # (Auto) Not performed [employer] Baso # (Auto) Not performed [employer] Abs Immat Gran (auto) Not performed [employer] Neutrophils % (Manual) 58.0 47.0 Band Neutrophils % 4.0 1.0 Lymphocytes % (Manual) 38.0 51.0 H Metamyelocytes % 1.0 H Neutrophils # (Manual) 1.6 L 0.9 L Band Neutrophils # 0.1 0.0 Lymphocytes # (Manual) 1.1 1.0 Metamyelocytes # 0.0 Nucleated RBCs 1 Poikilocytosis 1+ Anisocytosis 1+ Ovalocytes 1+ Helmet Cells 1+ RBC Morph Comment Abnormal Normal Turbidity < 20 Sodium 140 Potassium 3.6 Chloride 105 Carbon Dioxide 25 Anion Gap 10 BUN 32.0 H Creatinine 0.8 GFR Calculation 74 BUN/Creatinine Ratio 40 H Glucose 108 Calculated Osmolality 277 Uric Acid 6.5 Calcium 9.5 Phosphorus 4.6 H Magnesium 1.8 Total Bilirubin 0.60 Icterus Index < 2 AST 204 H ALT 71 H Alkaline Phosphatase 178 H Lactate Dehydrogenase 4013 H Total Protein 6.1 L Albumin 3.4 L Globulin 2.7 Albumin/Globulin Ratio 1.3 Specimen Hemolysis < 15 Stool Occult Blood Blood Type Antibody Screen Crossmatch ([facility]) Blood Product Request 02/03/18 02/03/18 02/03/18 04:54 08:38 11:01 WBC RBC Hgb Hct MCV MCH MCHC RDW Std Deviation Plt Count MPV Immature Gran % (Auto) Neut % (Auto) Lymph % (Auto) [place] % (Auto) Eos % (Auto) Baso % (Auto) Neut # (Auto) Lymph # (Auto) [place] # (Auto) Eos # (Auto) Baso # (Auto) Abs Immat Gran (auto) Neutrophils % (Manual) Band Neutrophils % Lymphocytes % (Manual) Metamyelocytes % Neutrophils # (Manual) Band Neutrophils # Lymphocytes # (Manual) Metamyelocytes # Nucleated RBCs Poikilocytosis Anisocytosis Ovalocytes Helmet Cells RBC Morph Comment Turbidity < 20 Sodium 139 Potassium 3.8 Chloride 103 Carbon Dioxide 27 Anion Gap 9 BUN 25.0 H Creatinine 0.7 GFR Calculation 86 BUN/Creatinine Ratio 36 H Glucose 116 H Calculated Osmolality 273 Uric Acid 6.7 Calcium 9.3 Phosphorus 4.9 H Magnesium 1.8 Total Bilirubin 0.70 Icterus Index < 2 AST 191 H ALT 67 H Alkaline Phosphatase 157 H Lactate Dehydrogenase 4072 H Total Protein 6.1 L Albumin 3.4 L Globulin 2.7 Albumin/Globulin Ratio 1.3 Specimen Hemolysis < 15 Stool Occult Blood Blood Type O Positive Antibody Screen Negative Crossmatch ([facility]) See Detail Blood Product Request 1 unit pc issued 02/03/18 02/04/18 02/04/18 14:18 04:20 04:20 WBC 1.9 L* RBC 2.44 L Hgb 8.3 L D 7.2 L D Hct 20.8 L MCV 85.2 MCH 29.5 MCHC 34.6 RDW Std Deviation 39.7 Plt Count 12 L* D MPV 11.6 Immature Gran % (Auto) Not performed Neut % (Auto) Not performed Lymph % (Auto) Not performed [place] % (Auto) Not performed Eos % (Auto) Not performed Baso % (Auto) Not performed Neut # (Auto) Not performed Lymph # (Auto) Not performed [place] # (Auto) Not performed Eos # (Auto) Not performed Baso # (Auto) Not performed Abs Immat Gran (auto) Not performed Neutrophils % (Manual) 39.0 Band Neutrophils % 2.0 Lymphocytes % (Manual) 59.0 H Metamyelocytes % Neutrophils # (Manual) 0.7 L Band Neutrophils # 0.0 Lymphocytes # (Manual) 1.1 Metamyelocytes # Nucleated RBCs Poikilocytosis Anisocytosis Ovalocytes Helmet Cells RBC Morph Comment Normal Turbidity < 20 Sodium 138 Potassium 3.7 Chloride 103 Carbon Dioxide 26 Anion Gap 9 BUN 26.0 H Creatinine 0.6 L GFR Calculation 103 BUN/Creatinine Ratio 43 H Glucose 121 H Calculated Osmolality 272 Uric Acid 6.3 Calcium 8.8 Phosphorus 4.0 Magnesium Total Bilirubin 0.70 Icterus Index < 2 AST 149 H ALT 58 H Alkaline Phosphatase 160 H Lactate Dehydrogenase 3262 H Total Protein 6.0 L Albumin 3.3 L Globulin 2.7 Albumin/Globulin Ratio 1.2 Specimen Hemolysis < 15 Stool Occult Blood Blood Type Antibody Screen Crossmatch ([facility]) Blood Product Request 02/04/18 02/04/18 02/04/18 06:21 12:29 13:01 WBC RBC Hgb Hct MCV MCH MCHC RDW Std Deviation Plt Count MPV Immature Gran % (Auto) Neut % (Auto) Lymph % (Auto) [place] % (Auto) Eos % (Auto) Baso % (Auto) Neut # (Auto) Lymph # (Auto) [place] # (Auto) Eos # (Auto) Baso # (Auto) Abs Immat Gran (auto) Neutrophils % (Manual) Band Neutrophils % Lymphocytes % (Manual) Metamyelocytes % Neutrophils # (Manual) Band Neutrophils # Lymphocytes # (Manual) Metamyelocytes # Nucleated RBCs Poikilocytosis Anisocytosis Ovalocytes Helmet Cells RBC Morph Comment Turbidity Sodium Potassium Chloride Carbon Dioxide Anion Gap BUN Creatinine GFR Calculation BUN/Creatinine Ratio Glucose Calculated Osmolality Uric Acid Calcium Phosphorus Magnesium Total Bilirubin Icterus Index AST ALT Alkaline Phosphatase Lactate Dehydrogenase Total Protein Albumin Globulin Albumin/Globulin Ratio Specimen Hemolysis Stool Occult Blood Negative Blood Type Antibody Screen Crossmatch ([facility]) Blood Product Request 1 unit ppp issued 1 unit pc issued 02/04/18 16:25 WBC RBC Hgb Hct MCV MCH MCHC RDW Std Deviation Plt Count MPV Immature Gran % (Auto) Neut % (Auto) Lymph % (Auto) [place] % (Auto) Eos % (Auto) Baso % (Auto) Neut # (Auto) Lymph # (Auto) [place] # (Auto) Eos # (Auto) Baso # (Auto) Abs Immat Gran (auto) Neutrophils % (Manual) Band Neutrophils % Lymphocytes % (Manual) Metamyelocytes % Neutrophils # (Manual) Band Neutrophils # Lymphocytes # (Manual) Metamyelocytes # Nucleated RBCs Poikilocytosis Anisocytosis Ovalocytes Helmet Cells RBC Morph Comment Turbidity Sodium Potassium Chloride Carbon Dioxide Anion Gap BUN Creatinine GFR Calculation BUN/Creatinine Ratio Glucose Calculated Osmolality Uric Acid Calcium Phosphorus Magnesium Total Bilirubin Icterus Index AST ALT Alkaline Phosphatase Lactate Dehydrogenase Total Protein Albumin Globulin Albumin/Globulin Ratio Specimen Hemolysis Stool Occult Blood Blood Type Antibody Screen Crossmatch ([facility]) Blood Product Request 1 unit pc issued Intake & Output 02/02/18 02/03/18 02/04/18 02/05/18 06:59 06:59 06:59 06:59 Intake Total 1550 / 1550 1130 / 1130 2360 / 2360 1076 / 1076 Balance 1550 / 1550 1130 / 1130 2360 / 2360 1076 / 1076 Weight 74.3 kg 72.9 kg 73 kg 74.4 kg - Time Spent With Patient Total time spent is greater than 50% in coordination of care (as documented) at patient's floor/unit and/or counseling patient:
[2018-02-05] MEDS: LEVOFLOXACIN 500 MG TABLET PO SCH (06:05)
[2018-02-05] MEDS: LEVOTHYROXINE 112 MCG TABLET PO SCH (06:05)
[2018-02-05] MEDS: PANTOPRAZOLE 20 MG TABLET PO SCH ×2 (06:05→17:37)
[2018-02-05] MEDS: FLUoxetine 20 MG CAPSULE PO SCH (09:40)
[2018-02-05] MEDS: ALLOPURINOL 300 MG TABLET PO SCH (09:40)
[2018-02-05] MEDS: MAGNESIUM OXIDE 400 MG TABLET PO SCH (09:40)
[2018-02-05] MEDS: NYSTATIN 500,000 units/5 ml ORAL LIQUID PO SCH ×4 (09:40→21:25)
[2018-02-05] MEDS: POLYETHYL GLYCOL 3350 17gm PACKET PO SCH ×2 (09:41→18:11)
[2018-02-05] MEDS: SALINE FLUSH 10ml SYRINGE IV PRN (09:42)
--- NOTE | 2018-02-05 11:46 | Progress Note ---
- Date 02/05/18 Subjective: Lani feels well today and has no new complaints. She is eager to go home. She denies dizziness or lightheadedness. No chest pain or SOA. She denies abdominal pain, n/v/d or constipation and has been eating well. Thrush has resolved. She' s worried about when the abx are dc'd -- currently she feels better, has no cough, and is concerned she might feel worse when Levaquin is stopped. Objective Vital signs: Temperature 98.6 F 02/05/18 08:00 Pulse Rate 92 02/05/18 08:49 Respiratory Rate 20 02/05/18 08:00 Blood Pressure 131/88 02/05/18 08:49 Pulse Oximetry 96 02/05/18 08:49 Height/Weight/BMI: Height 1.57 m Weight 72.9 kg Body Mass Index 31.0 - Constitutional Present: no acute distress, well nourished, well developed - Routine HEENT Exam Head: Present: normocephalic Eye: Present: PERRL. Absent: conjunctival icterus, scleral injection ENT: Present: mucous membranes moist, oropharynx clear - Routine Respiratory Exam Present: CTA bilaterally - Routine Cardiovascular Exam Present: RRR, S1, S2 - Routine Abdominal Exam Present: soft, normoactive bowel sounds, non distended, non tender - Routine Extremities Exam Present: no edema - Routine Back/Spine/Pelvis Exam Back/Spine: Present: full ROM - Routine Musculoskeletal Exam Musculoskeletal: Present: moving extremities well - Routine Skin Exam Present: intact, dry, warm - Routine Neurological Exam Present: alert, oriented X3, CN II-XII intact, moving all extremities, vision grossly intact, hearing grossly intact, normal speech. Absent: sensory deficit , motor deficit, altered mental status, facial asymmetry - Routine Psychiatric Exam Present: normal affect, normal thought process, cooperative Results - Labs CBC & Chem 7: 02/05/18 04:21 02/05/18 04:21 Assessment and Plan (1) Orthostatic hypotension Current visit: Yes Status: Acute Assessment and Plan: Small Cell Lung Cancer -Diagnosed with bone marrow biopsy d/t risk of bleeding with low plts -BM Biopsy done on 01/27/18 showing small cell lung cancer -chemo per Dr. Lepe -Decreasing uric acid & LDH; monitoring due to concern for TLS Neutropenia/pancytopenia -ANC 180; continue neutropenic precautions -Continue prophylactic Levaquin 500 mg PO daily (started on 02/03) -PRBC transfusion 02/03 and 02/04, & platelet transfusion 02/04. -Likely from marrow infiltration -Some concern for DIC with high LDH but DIC panel shows low probability of DIC -peripheral smear with leukoerythroblastic findings, bone marrow biopsy report pending -Neulasta on 02/01/18 with worsening pancytopenia noted 02/05/18. *Concern for GI bleed. H2RB changed to PPI. Rectal exam for FOB. Hemoccult negative for bleeding. Hypercalcemia; hyperphosphatemia -Likely 2/2 malignancy, PTH low -calcium normalized -Phosphorus trending down. Thrush, improving -Nystatin started 02/02/18 AMS -Resolved -2/2 to hypercalcemia -CT, MRI head unremarkable Transaminitis, improving -Possibly d/t mets -US with doppler noted mets but otherwise unremarkable -LFT's trending down. HTN, HLD -Stable, stop home lisinopril/HCTZ due to lower BP -Hold home pravastatin d/t transaminitis Hypothyroid -TSH low, Free T4 is elevated. -Decreased home Levothyroxine to 125 down to 112 mcg 01/31/18 Depression/Anxiety -Cont. home fluoxetine Hypotension -improved, but still low normal. Continues to require transfusions. Hold lisinopril/HCTZ for now and observe BP. DVT Prophylaxis: SCD's Resuscitation Status: Full Code - Physician Narrative Physician: Graciela Khanna MD Narrative: Date: 02/05/18 Time: 10:15 PM-I examined the patient independently. I reviewed this chart, the patient history, and the [employer]'s/PA's documented findings as above. We discussed and formulated the assessment and plan as above with the additions below.-Dr. Khanna The patient was seen this evening in her room. She states she continues to fall better. She has an occasional cough with some phlegm but is breathing much easier. She is no longer wheezing. She no longer feels lightheaded. She is eating and drinking okay. On exam she is alert and in no acute distress. She looks like she is feeling much better. Chest is clear to auscultation without any further stridor, wheezing or rhonchi. Cardiovascular reveals a regular rate and rhythm. Abdomen is soft and nontender. Extremities are free of edema. She has not had any hypotension today. White count today is 1.0. Hemoglobin 8.8. Platelets 32. Liver enzymes and LDH are trending down. Impression and plan Pancytopenia-stable today Hypotension-resolved Lung cancer on the left mainstem bronchus with stridor-stridor has resolved and breathing is improved postchemotherapy Electrolytes are stable Overall the patient is showing good improvement. Possible dismissal soon if blood counts are stable and okay with Dr. Lepe. Hospital Course Summary Disclaimer: The visit summary below is not to be considered part of the above Progress Note. Hospital Course: 01/27/18 Pt improving with hypercalcemia tx, oncology team working on getting biopsy to get cancer dx. 01/28/18 Pt doing better with hypercalcemia tx, will back down and monitor Ca. Platelets cont. to trend down, monitor and will transfuse if <10k. Bone marrow biopsy pending. 01/29/18 Pt continues to improve but plts remain low. Prelim reports on BM biopsy shows likely small cell lung cancer, onc plans on starting chemo tx in hospital and monitor blood counts to make sure they don't drop further. Will cont. to monitor Ca levels. 01/30/18 Pt stable, has started chemo tx with , will follow blood counts and replace as necessary. Will cont. to monitor Ca levels as pt may need bisphosphonates if levels start increasing again. 01/31/18 New SCLC with mets to liver. Confirmed on iliac crest BM bx. To complete day # [address] Lepe. Decrease Synthroid. Plan to recheck thyroid labs in 4 weeks or so. Trend LFTs due to elevation. No N/V or GI c/o currently. 02/01/18 Labs appear stable. LFTS remains elevated, known hepatic mets. No GI c/o today. 02/02/18 Increasing uric acid; LDH 4013; concern for TLS calcium improved; phos levels climbing Neulasta on 02/01/18 with worsening pancytopenia noted 02/02/18. -WBC 2.8, hgb 8.0, plt 27. Start Nystatin for thrush. 02/03/18 Increasing uric acid [6.7]; LDH 4072; phos levels climbing, up to 4.9; concern for TLS ANC 912, placed in neutropenic precautions on 02/03 -D/W Dr. Lepe: start prophylactic Levaquin 500 mg PO daily on 02/03 WBC 1.9, hgb 7.3, plt 21. PRBC transfusion x1 unit. 02/04/18 Improving LDH, uric acid. Continue to observe for TLS ANC trending down- continue neutropenic precautions. FOB negative. Continue PPI. Platelets, PRBCs given. continue to observe closely due to abnormal labs. 02/05/18 Decreasing uric acid & LDH; monitoring due to concern for TLS. LFTs trending down. ANC 180; continue neutropenic precautions. Continue prophylactic Levaquin
--- NOTE | 2018-02-05 13:13 | Progress Note ---
<Casandra Kenyon L - Last Filed: 02/05/18 13:07> Oncology Subjective Alert and oriented. States feeling some stronger today although continues to feel weak. No fever, chills, night sweats. Eating and drinking. No hematuria/ dysuria. Loose stools yesterday, no overt diarrhea. General: No fever, no night sweats. + Fatigue Eyes: No redness, no pain, no diplopia ENT: No mouth sores, no trouble swallowing Cardiac: No chest pain no palpitations Pulmonary: No cough, no shortness of breath, no wheezing Abdomen: No pain, no nausea vomiting, loose stools : No urgency, frequency, dysuria, or hematuria Musculoskeletal: No arthritis, no myalgias Neurological: No headaches, no focal weakness Skin: No rash, no sores Psychiatric: No anxiety, no depression Exam Vital signs: Temperature 98.6 F 02/05/18 08:00 Pulse Rate 92 02/05/18 08:49 Respiratory Rate 20 02/05/18 08:00 Blood Pressure 131/88 02/05/18 08:49 Pulse Oximetry 96 02/05/18 08:49 Narrative: Generic Name Dose Route Start Last Admin Trade Name Freq PRN Reason Stop Dose Admin Acetaminophen 650 mg 02/01/18 19:02 02/02/18 22:36 Tylenol PO 650 mg Q6H PRN Administration Pain Al Hydroxide/Mg Hydroxide 30 ml 02/04/18 08:38 Maalox Plus PO Q6H PRN Indigestion Albuterol/Ipratropium 3 ml 01/27/18 14:23 02/02/18 03:54 Duoneb AEROSOL 3 ml Q6H PRN Administration Allopurinol 300 mg 01/28/18 22:00 02/05/18 09:40 Zyloprim PO 300 mg DAILY DELICIA Administration Diphenhydramine HCl 50 mg 01/29/18 15:17 Benadryl IVP PRN PRN Fluoxetine HCl 20 mg 01/28/18 09:00 02/05/18 09:40 Prozac PO 20 mg DAILY DELICIA Administration Guaifenesin 400 mg 01/27/18 14:24 02/01/18 00:07 Robitussin Liq PO 400 mg Q4H PRN Administration Cough /Congestion Lisinopril/HCTZ 1 tab 01/28/18 09:00 02/03/18 08:40 Prinzide 10/12.5 PO 1 tab DAILY DELICIA Administration Hydrocortisone Sodium Succinate 100 mg 01/29/18 15:19 Solu-Cortef IVP PRN PRN Levofloxacin 500 mg 02/03/18 08:08 02/05/18 06:05 Levaquin PO 500 mg ACB DELICIA Administration Levothyroxine Sodium 112 mcg 02/03/18 06:30 02/05/18 06:05 Synthroid PO 112 mcg ACB DELICIA Administration Magnesium Oxide 200 mg 01/28/18 09:00 02/05/18 09:40 Magox PO 200 mg DAILY DELICIA Administration Methylprednisolone Sodium Succinate 125 mg 01/29/18 15:19 Solu-Medrol IVP PRN PRN Morphine Sulfate 2 - 4 mg 02/02/18 09:15 Morphine Sulfate Inj IVP Q3H PRN Pain Nystatin 5 ml 02/02/18 13:00 02/05/18 09:40 Mycostatin PO 5 ml QID DELICIA Administration Ondansetron HCl 4 mg 01/27/18 12:39 01/27/18 19:06 Zofran Odt Tablet PO 4 mg Q4H PRN Administration Nausea &/or vomiting Pantoprazole Sodium 20 mg 02/04/18 08:38 02/05/18 06:05 Protonix PO 20 mg ACBID [facility] Administration Polyethylene Glycol 17 gm 02/02/18 09:00 02/05/18 09:41 Miralax PO Not Given DAILY [facility] Prochlorperazine Edisylate 10 mg 01/27/18 12:39 01/31/18 14:02 Compazine Iv IVP 10 mg Q6H PRN Administration Nausea &/or vomiting Senna 8.6 - 17.2 mg 02/02/18 14:18 02/02/18 15:58 Senna Lax PO 17.2 mg BID PRN Administration Constipation Sodium Chloride 10 - 80 ml 01/27/18 04:34 02/05/18 09:42 Iv Flush IV 20 ml PRN PRN Administration Flushing Sodium Chloride 500 ml 01/28/18 10:33 01/31/18 13:35 Normal Saline IV 500 ml PRN PRN Administration Sodium Chloride 500 ml 02/04/18 08:41 Normal Saline IV PRN PRN Discontinued Medications Generic Name Dose Route Start Last Admin Trade Name Freq PRN Reason Stop Dose Admin Alteplase, Recombinant 2 mg 02/04/18 09:32 02/04/18 09:41 Cathflo Activase IV 02/04/18 09:33 2 mg O ONE Administration Calcitonin [place] 0 unit 01/26/18 21:00 Miacalcin SQ Q12HR DELICIA Calcitonin [place] 300 unit 01/26/18 18:00 01/30/18 09:35 Miacalcin SQ 01/30/18 23:00 300 unit Q12HR DELICIA Administration Sodium Chloride 1,000 mls @ 200 mls/hr 01/26/18 14:30 01/27/18 19:00 Normal Saline IV Infused .Q5H DELICIA Infusion Sodium Chloride 1,000 mls @ 999.9 mls/hr 01/26/18 15:00 01/26/18 17:31 Normal Saline IV 01/26/18 16:00 Not Given .Q1H DELICIA Magnesium Sulfate/Dextrose 1 gm in 100 mls @ 100 mls/hr 01/28/18 08:56 14:03 Mag Sulf 1gm Premix IV 01/28/18 11:55 Infused Q1H DELICIA Infusion Dexamethasone 10 mg/ Sodium 52.5 mls @ 210 mls/hr 01/29/18 15:00 01/29/18 16: 18 Chloride IV 01/29/18 15:14 Infused O ONE Infusion Fosaprepitant 150 mg/ Sodium 145 mls @ 290 mls/hr 01/29/18 15:00 01/29/18 15: 42 Chloride IV 01/29/18 15:29 Infused O ONE Infusion Carboplatin 732 mg/ Sodium 323.2 mls @ 330 mls/hr 01/29/18 15:30 01/29/18 17: 39 Chloride IV 01/29/18 16:28 Infused O ONE Infusion Etoposide 175 mg/ Sodium 508.75 mls @ 300 mls/hr 01/29/18 16:30 01/29/18 20: 14 Chloride IV 01/29/18 18:11 Infused O ONE Infusion Etoposide 175 mg/ Sodium 508.75 mls @ 300 mls/hr 01/30/18 16:30 01/30/18 18: 30 Chloride IV 01/31/18 18:12 Infused 1630 DELICIA Infusion Dexamethasone 10 mg/ Sodium 52.5 mls @ 210 mls/hr 01/30/18 16:00 01/30/18 16: 06 Chloride IV 01/31/18 16:14 Infused 1600 DELICIA Infusion Dexamethasone 10 mg/ Sodium 52.5 mls @ 210 mls/hr 01/31/18 13:30 01/31/18 13: 53 Chloride IV 01/31/18 13:44 Infused 1330 DELICIA Infusion Etoposide 175 mg/ Sodium 508.75 mls @ 300 mls/hr 01/31/18 14:00 01/31/18 16: 00 Chloride IV 01/31/18 15:42 Infused 1400 DELICIA Infusion Sodium Chloride 500 mls @ 500 mls/hr 02/03/18 16:11 02/03/18 17:27 Normal Saline IV 02/03/18 17:10 Infused .Q1H ONE Infusion Levothyroxine Sodium 125 mcg 01/27/18 13:45 01/31/18 06:15 Synthroid PO 125 mcg ACB DELICIA Administration Levothyroxine Sodium 112 mcg 01/31/18 12:15 02/02/18 05:32 Synthroid PO 112 mcg ACB DELICIA Administration Morphine Sulfate 2 - 4 mg 01/27/18 18:56 01/27/18 19:06 Morphine Sulf 2 Mg Inj IVP 2 mg Q3-4HR PRN Administration Pain Morphine Sulfate 2 - 4 mg 01/28/18 06:45 01/28/18 18:38 Morphine Sulfate Inj IVP 4 mg Q3-4HR PRN Administration Pain Olanzapine 2.5 mg 01/29/18 15:15 01/29/18 16:02 Zyprexa PO 01/29/18 15:16 2.5 mg O ONE Administration Olanzapine 2.5 mg 01/30/18 09:00 02/01/18 08:57 Zyprexa PO 02/01/18 09:01 2.5 mg DAILY DELICIA Administration Ondansetron HCl 4 mg 01/27/18 12:19 Zofran IVP Q6H PRN Nausea &/or vomiting Palonosetron 0.25 mg 01/29/18 14:45 01/29/18 15:11 Aloxi IV 01/29/18 14:46 0.25 mg O ONE Administration Pegfilgrastim 6 mg 02/01/18 20:00 02/01/18 20:03 Neulasta SQ 02/01/18 20:01 6 mg O ONE Administration Pharmacy Consult 1 each 01/27/18 14:56 Pharmacy Consult - Fall Risk 01/27/18 14:57 ONE TIME ONE Potassium Chloride 40 meq 01/27/18 08:27 01/27/18 09:32 K-Dur 20 Meq Tablet PO 01/27/18 08:28 40 meq O ONE Administration Potassium Chloride 40 meq 01/27/18 18:00 01/27/18 19:07 K-Dur 20 Meq Tablet PO 01/27/18 18:01 40 meq O ONE Administration Ranitidine HCl 150 mg 01/29/18 14:56 02/03/18 23:13 Zantac PO 150 mg BID PRN Administration Sodium Chloride 500 ml 02/03/18 08:07 Normal Saline IV PRN PRN Sodium Chloride 500 ml 02/04/18 06:02 Normal Saline IV PRN PRN Sodium Chloride 500 ml 02/04/18 08:39 Normal Saline IV PRN PRN - Constitutional no acute distress, well developed, cooperative - Routine HEENT Exam Head: Present: normocephalic Eye: Present: EOMI ENT: Present: mucous membranes moist - Routine Neck Exam Present: supple. Absent: lymphadenopathy - Routine Respiratory Exam Present: CTA bilaterally. Absent: wheezes, crackles - Routine Cardiovascular Exam Present: RRR. Absent: no murmur - Routine Abdominal Exam Present: soft, non tender. Absent: mass - Routine Extremities Exam Present: no edema - Routine Back/Spine/Pelvis Exam Back/Spine: Absent: vertebral tenderness - Routine Skin Exam Present: intact, dry. Absent: petechiae - Routine Neurological Exam Present: alert, oriented X3 - Routine Psychiatric Exam Present: normal affect, cooperative Oncology Results - Labs CBC & Chem 7: 02/05/18 04:21 02/05/18 04:21 Labs: Short CBC 02/04/18 02/05/18 Range/Units 20:07 04:21 WBC 1.0 L* D 1.0 L* (4.5-11.0) T/MM3 Hgb 9.2 L D 8.8 L (12-16) GM/DL Hct 25.9 L D 25.6 L (36-46) % Plt Count 38 L D 32 L (130-400) T/MM3 BMP 02/05/18 04:21 Sodium 139 Potassium 3.8 Chloride 105 Carbon Dioxide 23 BUN 16.0 Creatinine 0.5 L Glucose 120 H Calcium 9.0 Liver Function 02/05/18 Range/Units 04:21 Total Bilirubin 0.60 (0.20-1.30) MG/DL AST 117 H (14-36) U/L ALT 49 H (1-35) U/L Alkaline Phosphatase 161 H (38-126) U/L Albumin 3.4 L (3.5-5.0) g/dL Assessment and Plan Assessment and Plan: Extensive stage small cell lung cancer. Began chemotherapy on 01/29/18. Treatment carboplatinum AUC of 5 on day 1, etoposide 100 mg per meter squared IV day 1, 2 , 3. Neulasta given 02/01. WBC 1.9 on 02/03/18. Prophylactic Levaquin started. Neutropenia persists. Continue to follow Hyperphosphatemia on 01/29/18. High on 02/02/18 at 4.6, phosphorus level 4.9 on , and normalized 02/04/18 at 4.0 Hyperthyroidism with elevated free T4. Levothyroxine dose has been reduced. Thrombocytopenia. Platelets 12 K on 02/04/18, received one unit platelets; today , 02/05/18 platelets are 32K Anemia. Received one unit packed RBCs 02/03/18, received 2 units packed RBCs . Hemoglobin 02/04/18 is 9.2, today, 02/05/18, hemoglobin is 8.8 Plan Continue supportive care. Reviewed neutropenic precautions, reviewed signs/ symptoms to report. Continues to verbalize intends to stay quit from smoking. Encouraged; reinforced may be more difficult when is at home. Reinforced benefits of not smoking, including improved effectiveness of chemotherapy. - Time Spent With Patient Total time spent is greater than 50% in coordination of care (as documented) at patient's floor/unit and/or counseling patient: less than 15 minutes <Ash Lepe - Last Filed: 02/05/18 19:35> Exam Vital signs: Temperature 99.0 F 02/05/18 16:00 Pulse Rate 87 02/05/18 16:00 Respiratory Rate 18 02/05/18 16:00 Blood Pressure 129/65 02/05/18 16:00 Pulse Oximetry 95 02/05/18 16:00 Oncology Results - Labs CBC & Chem 7: 02/05/18 04:21 02/05/18 04:21 Labs: Short CBC 02/04/18 02/05/18 Range/Units 20:07 04:21 WBC 1.0 L* D 1.0 L* (4.5-11.0) T/MM3 Hgb 9.2 L D 8.8 L (12-16) GM/DL Hct 25.9 L D 25.6 L (36-46) % Plt Count 38 L D 32 L (130-400) T/MM3 BMP 02/05/18 04:21 Sodium 139 Potassium 3.8 Chloride 105 Carbon Dioxide 23 BUN 16.0 Creatinine 0.5 L Glucose 120 H Calcium 9.0 Liver Function 02/05/18 Range/Units 04:21 Total Bilirubin 0.60 (0.20-1.30) MG/DL AST 117 H (14-36) U/L ALT 49 H (1-35) U/L Alkaline Phosphatase 161 H (38-126) U/L Albumin 3.4 L (3.5-5.0) g/dL Assessment and Plan Assessment and Plan: Patient examined, chart reviewed, plan of care developed in participation with Shannan Kenyon. Agree with documentation of Shannan Kenyon. WBC today is 1.0 with platelets of 32K. She had low platelets yesterday and had platelet transfusion. Hopefully will be able to give blood and platelets tomorrow and be able to have patient go home. I would like to see WBC start to increase. We can provide platelet support and packed red blood cell support at [facility] Tests 02/01/18 02/02/18 02/02/18 04:11 03:48 03:48 WBC Hgb Plt Count 27 L* Creatinine Uric Acid 6.5 Phosphorus 4.6 H Total Bilirubin AST ALT Alkaline Phosphatase 181 H 178 H Lactate Dehydrogenase Stool Occult Blood 02/03/18 02/03/18 02/04/18 04:54 04:54 04:20 WBC 1.9 L* 1.9 L* Hgb 7.3 L 7.2 L D Plt Count 21 L* 12 L* D Creatinine 0.7 Uric Acid 6.7 Phosphorus 4.9 H Total Bilirubin 0.70 AST 191 H ALT 67 H Alkaline Phosphatase 157 H Lactate Dehydrogenase 4072 H Stool Occult Blood 02/04/18 02/04/18 02/04/18 04:20 12:29 20:07 WBC 1.0 L* D Hgb 9.2 L D Plt Count 38 L D Creatinine 0.6 L Uric Acid 6.3 Phosphorus Total Bilirubin AST ALT Alkaline Phosphatase Lactate Dehydrogenase 3262 H Stool Occult Blood Negative 02/05/18 02/05/18 04:21 04:21 WBC 1.0 L* Hgb 8.8 L Plt Count 32 L Creatinine 0.5 L Uric Acid 5.2 Phosphorus Total Bilirubin AST ALT Alkaline Phosphatase 161 H Lactate Dehydrogenase 2639 H Stool Occult Blood - Time Spent With Patient Total time spent is greater than 50% in coordination of care (as documented) at patient's floor/unit and/or counseling patient: 25 - 35 minutes
[2018-02-06] MEDS: LEVOFLOXACIN 500 MG TABLET PO SCH (06:34)
[2018-02-06] MEDS: PANTOPRAZOLE 20 MG TABLET PO SCH ×2 (06:34→17:32)
[2018-02-06] MEDS: LEVOTHYROXINE 112 MCG TABLET PO SCH (06:34)
[2018-02-06 08:25] VITALS: RESP 12
[2018-02-06] MEDS: POLYETHYL GLYCOL 3350 17gm PACKET PO SCH (08:25)
[2018-02-06] MEDS: MAGNESIUM OXIDE 400 MG TABLET PO SCH (08:26)
[2018-02-06] MEDS: FLUoxetine 20 MG CAPSULE PO SCH (08:26)
[2018-02-06] MEDS: ALLOPURINOL 300 MG TABLET PO SCH (08:26)
[2018-02-06] MEDS: NYSTATIN 500,000 units/5 ml ORAL LIQUID PO SCH ×3 (08:27→17:32)
[2018-02-06] MEDS ORDERED: NS FLUSH BAG 500ml IV PRN (10:51)
--- NOTE | 2018-02-06 12:18 | Discharge Summary ---
Discharge Information Date of admission: 01/27/18 15:50 Anticipated date of discharge: 02/06/18 Attending Physician: Dayan Geiger MD Consults: Consulting Provider: Ash Lepe Reason For Exam: lung mass - Discharge Diagnosis (1) Neutropenia Status: Acute (2) Non-small cell cancer of left lung Status: Acute Small cell lung cancer, began chemotherapy with carboplatinum and etoposide on Neutropenia/pancytopenia, s/p Neulasta on 02/01/18 Hypercalcemia, resolved Hyperphosphatemia, resolved Thrush, improving Altered mental status, resolved Transaminitis, improving Hypotension, resolved HTN Hyperlipidemia Depression Anxiety - Procedures Procedures: Date of Exam: 01/27/18 Procedure:CT biopsy bone marrow CT GUIDED BONE MARROW BIOPSY/ASPIRATION: The procedure including the benefits, risks, and alternatives were explained in detail to the patient. All of her questions were answered. They stated that they understood and wished to proceed. Informed consent was obtained. A pre-procedural timeout was done to verify the correct patient and procedure. Using sterile technique, local Xylocaine and Marcaine anesthesia, and CT guidance, an 11-gauge bone biopsy needle is advanced from a posterior approach into the right iliac bone. Approximately 6 cc of marrow is aspirated and a core biopsy was then taken. The needle was removed. There was no complication. Hemostasis was obtained and a compression bandage was applied. Following this, the patient was taken back to her room on the medical floor in stable condition. Impression: Successful bone marrow biopsy performed from the posterior aspect of the right iliac bone. = = = = = = = = = = = = = = = = = = = = = = = = = = = = = = = = = = = = = = = = = = = = = = = = = = = = = = = = = = = Right PICC line Irradiated, leuko-reduced PRBC transfusions * 1 unit on 02/03/18 * 2 units on 02/04/18 Irradiated, leuko-reduced PRBC transfusions * 1 platelet pack on 02/04/18 * 1 platelet pack on 02/06/18 - Laboratory Labs: 02/06/18 04:26 02/06/18 04:26 - Radiology Radiology: = = = = = = = = = = = = = = = = = = = = = = = = = = = = = = = = = = = = = = = = = = = = = = = = = = = = = = = = = = = Date of Exam: 01/26/18 PROCEDURE: US abd/pelvic doppler complete: Impression: Color doppler duplex imaging of the hepatic vasculature was performed. This shows normal flow direction and waveforms within the left, middle and right hepatic veins. Normal flow direction in the main portal vein with normal velocity of 30.7 cm/s. Hepatic artery shows a multiphasic normal waveform with a peak systolic velocity of 85.3 cm/s, end*velocity of 25.8 cm/s and resistive index of 0.7. = = = = = = = = = = = = = = = = = = = = = = = = = = = = = = = = = = = = = = = = = = = = = = = = = = = = = = = = = = = Date of Exam: 01/26/18 PROCEDURE: CT head/brain without contrast: Findings: The ventricles and sulci are normal. There is no mass, mass effect, or midline shift. No evidence for intracranial hemorrhage. No intra, or extra- axial fluid collections. There is normal aeration of the paranasal and mastoid sinuses. There is no definite skull fracture or bony destructive process. IMPRESSION: Normal head CT without contrast. No evidence for acute cortical infarct, intracranial hemorrhage, or mass. = = = = = = = = = = = = = = = = = = = = = = = = = = = = = = = = = = = = = = = = = = = = = = = = = = = = = = = = = = = Date of Exam: 01/26/18 PROCEDURE: US liver: Findings: Hepatic parenchyma is heterogeneous with multiple small presumed metastatic lesions seen. The largest in the right lobe measures 3.6 cm in diameter. The largest in the left lobe measures 2.1 cm. The gallbladder is normal. There is no wall thickening, pericholecystic fluid, sonographic Zamorano' s sign or cholelithiasis. Both the intra and extrahepatic biliary system are of normal caliber with the common duct measuring 3 mm in dimension. Visualized portions of the head and body of the pancreas are unremarkable. The right kidney is present without collecting system dilatation. The right kidney measures 11.5 cm in length. Impression: Presumed hepatic metastases. = = = = = = = = = = = = = = = = = = = = = = = = = = = = = = = = = = = = = = = = = = = = = = = = = = = = = = = = = = = Date of Exam: 01/28/18 PROCEDURE: NM bone scan whole body: FINDINGS: The scan demonstrates the expected normal biodistribution for the radiotracer. There is probable degenerative uptake seen in the shoulders. There is no abnormal radiotracer uptake to suggest bony metastasis. IMPRESSION: No evidence of metastatic disease to the skeleton. = = = = = = = = = = = = = = = = = = = = = = = = = = = = = = = = = = = = = = = = = = = = = = = = = = = = = = = = = = = Date of Exam: 01/29/18 PROCEDURE: MR head/brain with and without contrast: FINDINGS: The ventricles are of normal size, shape, and contour for the patient' s age. The brain stem, cerebellum, and cerebral hemispheres have a normal morphologic appearance as well as MR signal intensity on all pulse sequences. Following intravenous administration of contrast, no areas of abnormal enhancement are evident. There are no areas of restricted diffusion to suggest an acute infarct. There is no evidence of an intracranial mass lesion, intracranial hemorrhage, or hydrocephalus. Small left mastoid effusion. The visualized portions of the orbits, calvarium, paranasal sinuses, and skull base demonstrate no other abnormality. IMPRESSION: No evidence of intracranial metastatic disease. = = = = = = = = = = = = = = = = = = = = = = = = = = = = = = = = = = = = = = = = = = = = = = = = = = = = = = = = = = = Date of Exam: 02/03/18 PROCEDURE: CHEST 2-VIEWS UPRIGHT (PA & LAT) FINDINGS: Left hilar area lung mass measuring approximately 7.4 x 5.4 cm. Right PICC line in place with the tip in the lower SVC. Scattered left hilar area groundglass opacities. Right lung is grossly clear. Surgical clips in the right breast. No pneumothorax or effusion. Heart size is normal. Pulmonary vascularity is normal. Impression: Left hilar area mass. Underlying postobstructive atelectasis or infection cannot be excluded in this region. - Pathology Bone marrow report: * Metastatic small cell carcinoma with near complete marrow involvement * Minimal background hematopoiesis * 7% monoclonal B cells detected by flow cytometry: no morphologic evidence of lymphoma * Moderate normochromic, normocytic anemia, marked thrombocytopenia, slight leukopenia with slight granulocytic left shift History of Present Illness HPI: Lani is a 57 yr old female who has been under the primary care of Dr Анна Davis in [facility]. She reports was seen approximately 4 weeks ago for coughing that would not go away. He was seen multiple times, however, symptoms did not improve. CT scan of the chest was performed that did reveal a large mass in the chest. On 01/23/[address] scan of the liver which did reveal a lesion in the right hepatic lobe. There was also presence of lymph nodes within the mediastinum that are concerning for metastatic disease. She has had intermittent episodes of nausea and vomiting accompanied with falls and confusion. She was referred to Dr. Lepe for oncology evaluation and recommendations. Today she was seen at the clinic and found to be hypotensive with lying blood pressure 112/74 and standing blood pressure of 73/54. Due to acute changes accompanied with concern for metastatic cancer. The hospitalist services were contacted and accepted. Patient for outpatient observation for further evaluation and treatment. Objective Vital signs: Temperature 96.6 F L 02/06/18 08:00 Pulse Rate 87 02/06/18 08:00 Respiratory Rate 12 02/06/18 08:00 Blood Pressure 117/78 02/06/18 08:00 Pulse Oximetry 95 02/06/18 08:00 Height/Weight/BMI: Height 1.57 m Weight 73.7 kg Body Mass Index 31.0 - Constitutional Present: no acute distress, well nourished, well developed - Routine HEENT Exam Head: Present: normocephalic Eye: Present: PERRL. Absent: conjunctival icterus, scleral injection ENT: Present: mucous membranes moist, oropharynx clear - Routine Respiratory Exam Present: CTA bilaterally - Routine Cardiovascular Exam Present: RRR, S1, S2 - Routine Abdominal Exam Present: soft, normoactive bowel sounds, non distended, non tender - Routine Extremities Exam Present: no edema - Routine Musculoskeletal Exam Musculoskeletal: Present: moving extremities well - Routine Skin Exam Present: intact, dry, warm - Routine Neurological Exam Present: alert, oriented X3, moving all extremities, normal speech - Routine Psychiatric Exam Present: normal affect, normal thought process, cooperative Hospital Course This is a general summary of the patient's hospital course. For more details refer to the complete medical record. Hospital course: 01/26/18: Admitted IVF, calcitonin started for hypotension/orthostasis and hypercalcemia (13.6). Dr. Lepe consulted, recommended biopsy for lung mass. Workup initiated for thrombocytopenia 01/27/18 Improving with hypercalcemia tx, bone marrow biopsy done. Ca 11.0. DIC panel shows low probability of DIC Hold home pravastatin d/t transaminitis 01/28/18 Pt doing better with hypercalcemia tx, Ca 10.5. Platelets 27, transfuse if < 10k. TSH low, 0.23. Free T4 2.29 (H). 01/29/18-01/30/18 Platelets 29,000. LDH is 3800, calcium is 10.4. Prelim BM biopsy shows likely small cell lung cancer, began chemotherapy with carboplatinum and etoposide. Expect to see neutropenia and thrombocytopenia worsen. 01/31/18 New SCLC with mets to liver. Confirmed on iliac crest BM bx. To complete day # 3 chemotherapy today. Decrease Synthroid. Plan to recheck thyroid labs in 4 weeks or so. 02/01/18 WBC 3.5, plt 34. Neulasta given. LFTs remain elevated, known hepatic mets. No GI c/o today. 02/02/18 Increasing uric acid; LDH 4013; concern for TLS. calcium improved; phos levels climbing. WBC 2.8, hgb 8.0, plt 27. Start Nystatin for thrush. 02/03/18 Increasing uric acid [6.7]; LDH 4072; phos up to 4.9 ANC 912, placed in neutropenic precautions. Start prophylactic Levaquin 500 mg PO daily WBC 1.9, hgb 7.3, plt 21. PRBC transfusion x1 unit. 02/04/18 Improving LDH, uric acid. ANC trending down- continue neutropenic precautions. Platelets 12, hgb 7.3 -- Platelets, PRBCs given. Concern for GI bleed - FOB negative. Continue PPI. 02/05/18 Decreasing uric acid & LDH; monitoring due to concern for TLS. LFTs trending down. WBC 1.0; ANC 180. Platelets 32. Continue prophylactic Levaquin 02/06/18: Discharged home Platelets decreased to 22 -- add'l platelet pack given. WBC 1.1. Hgb 9.0. Stable for discharge home. Rx Levaquin to complete 7-day course. Continue Nystatin while on antibiotics. Continue allopurinol. DC statin for now - may resume in outpt setting; follow LFTs. Synthroid dose decreased - will need outpt follow up. Outpt labs scheduled for 02/08 in [place]. F/U already scheduled with Dr. Lepe on 02/09. Time spent with patient: discharge greater than 30 minutes Resuscitation Status: Full Code Discharge Plan - Discharge Disposition Discharge Date: 02/06/18 Disposition: 01 Discharged Home, Self-Care *Condition: Stable Reason For Visit (Visit label in EMR): Lung cancer, chemotherapy - Discharge Medications *Discharge Medications: New Allopurinol [Zyloprim] 300 mg PO DAILY #30 tab Levofloxacin [Levaquin] 500 mg PO ACB #4 tab Levothyroxine Tab [Synthroid] 112 mcg PO ACB #30 tab PEG 3350 17gm PACKET [Miralax] 17 gm PO DAILY PRN packet PRN Reason: Constipation Albuterol/Ipratropium [Duoneb] 3 ml AEROSOL Q6H PRN #1 box PRN Reason: Shortness Of Air/Wheezing Nystatin Oral Liq. [Mycostatin] 5 ml PO QID 5 Days #20 udc Continue Fenofibrate Nanocrystallized [Fenofibrate] 1 tab PO HS Lisinopril/Hctz 10/12.5 [Prinzide 10/12.5] 1 tab PO DAILY FLUoxetine [Prozac] 1 cap PO DAILY ClonazePAM [Klonopin] 0.5 mg PO DAILY PRN PRN Reason: Anxiety Ubidecarenone/Vitamin E [Co Q-10 50 mg Softgel] 1 tab PO DAILY Ergocalciferol (Vitamin D2) [Vitamin D2] 2 tab PO DAILY Zinc 50 mg PO DAILY Magnesium 250 mg PO DAILY Discontinued Levothyroxine Sodium [Levothyroxine Sodium] 1 tab PO DAILY Calcium Carbonate [Calcium] 615 mg PO DAILY Pravastatin [Pravachol] 2 tab PO HS - Discharge Packet/Instructions *Diet: Regular. *Activity: As tolerated. Try to avoid contact with sick people. Wash hands frequently. *Pain Management/Treatment: Tylenol, if needed. *Wound Care: You will be more likely to bruise/bleed when your platelet count is low. Additional Instructions: Your Synthroid dose was decreased. Have your doctor recheck TSH/free T4 in about a month to see how your thyroid is responding to the different dose. *Expected Signs/Symptoms: As above; Fatigue/weakness. *Notify Physician if: difficulty breathing, chest pain, fever or signs of infection, abdominal pain, vomiting or diarrhea, passing out or severe weakness/ dizziness, or any new concerns. *During Business Hours Contact: Dr. Lepe's office. *After Business Hours Contact: The on-call provider for Dr. Lepe. *Pending Lab/Results: No Pending Lab - Referrals/Follow Up *Referrals/Follow Up: Ash Lepe MD [Physician] - 3 Days - Patient Handouts - Dismissal Complete Discharge Instructions are:: Complete Physician Narrative - Narrative Physician: Dayan Geiger MD Attestation Narrative: Date: 02/06/18 Time: 1600 I have independently evaluated and examined this patient. I reviewed the chart, the patient's history, and the MEDICAL TECHNOLOGIST PRN/PA's documented findings as above. We discussed and formulated the assessment and plan as above with additions as below: Mrs. Liu denies dyspnea today and reports no wheezing. Overall she feels significantly better than on admission. She denies bruising or bleeding. NAD, alert, respirations nonlabored Air flow is good on auscultation although there is faint expiratory wheezing on auscultation of the left lung field intermittently. Single bruise noted on the right lateral thigh; no petechiae. Hemodynamically stable, platelet count 38-32-22K past [address] Lepe-jairo for discharge later today after platelet pack confused. PICC line to remain in has additional blood products anticipated next week.
[2018-02-06] MEDS: ACETAMINOPHEN 325 MG TABLET PO PRN (12:40)
--- NOTE | 2018-02-06 13:40 | Progress Note ---
<Casandra Kenyon - Last Filed: 02/06/18 13:37> Oncology Subjective Alone in room. Alert/oriented. States had mild headache today, states intermittently has chronic headaches, uses ibuprofen at home when necessary headaches. Taught avoid aspirin and all NSAID's because of low platelets. Denies fever, chills, night sweats. Denies cough or shortness of air. Feeling much improved. Denies bleeding. States normal stools. No dysuria/hematuria. Anxious for dismissal to home. General: No fever, no night sweats Eyes: No redness, no pain, no diplopia ENT: No mouth sores, no trouble swallowing Cardiac: No chest pain no palpitations Pulmonary: No cough, no shortness of breath, no wheezing Abdomen: No pain, no nausea vomiting, no diarrhea or constipation : No urgency, frequency, dysuria, or hematuria Musculoskeletal: No arthritis, no myalgias Neurological: Positive chronic headaches, no focal weakness Skin: No rash, no sores Psychiatric: No anxiety, no depression Exam Vital signs: Temperature 96.6 F L 02/06/18 08:00 Pulse Rate 87 02/06/18 08:00 Respiratory Rate 12 02/06/18 08:00 Blood Pressure 117/78 02/06/18 08:00 Pulse Oximetry 95 02/06/18 08:00 - Constitutional no acute distress, well nourished, well developed, cooperative - Routine HEENT Exam Head: Present: normocephalic Eye: Present: EOMI ENT: Present: mucous membranes moist - Routine Neck Exam Present: supple. Absent: lymphadenopathy - Routine Respiratory Exam Present: decreased breath sounds. Absent: wheezes, crackles - Routine Cardiovascular Exam Present: RRR, no murmur - Routine Abdominal Exam Present: soft, non tender. Absent: mass - Routine Extremities Exam Present: full ROM. Absent: no edema - Routine Skin Exam Present: intact, dry, warm - Routine Neurological Exam Present: alert, oriented X3 - Routine Psychiatric Exam Present: normal affect, cooperative Oncology Results - Labs CBC & Chem 7: 02/06/18 04:26 02/06/18 04:26 Labs: Short CBC 02/06/18 Range/Units 04:26 WBC 1.1 L* (4.5-11.0) T/MM3 Hgb 9.0 L (12-16) GM/DL Hct 25.5 L (36-46) % Plt Count 22 L* (130-400) T/MM3 BMP 02/06/18 04:26 Sodium 141 Potassium 4.0 Chloride 105 Carbon Dioxide 25 BUN 14.0 Creatinine 0.5 L Glucose 117 H Calcium 9.3 Liver Function 02/06/18 Range/Units 04:26 Total Bilirubin 0.70 (0.20-1.30) MG/DL AST 84 H (14-36) U/L ALT 43 H (1-35) U/L Alkaline Phosphatase 152 H (38-126) U/L Albumin 3.4 L (3.5-5.0) g/dL Assessment and Plan Assessment and Plan: 1. Extensive stage small cell lung cancer. Began chemotherapy on 01/29/18. Treatment carboplatinum AUC of 5 on day 1, etoposide 100 mg per meter squared IV day 1, 2, 3. Neulasta given 02/01. WBC 1.9 on 02/03/18. Prophylactic Levaquin started. Neutropenia persists. Continue to follow 2. Hyperphosphatemia on 01/29/18. High on 02/02/18 at 4.6, phosphorus level 4.9 on 02/03/18, and normalized 02/04/18 at 4.0. Resolved. 3. Hyperthyroidism with elevated free T4. Levothyroxine dose has been reduced. Will follow as outpatient. 4. Thrombocytopenia. Platelets 12 K on 02/04/18, received one unit platelets; 02/05/18 platelets are 32K, and today, 02/06/18 platelets are 22K. One unit platelets will be given today. 5. Anemia. Received one unit packed RBCs 02/03/18, received 2 units packed RBCs 02/04/18. Hemoglobin 02/04/18 is 9.2, 02/05/18 hemoglobin is 8.8, and hemoglobin 02/06/18 is 9.0. Plan Oncology okay with dismissal to home after receives platelets. Will need daily CBC; results to be called to Dr. Lepe. RTC to Dr. Lepe 02/09/18 with CBC, CMP, LDH, magnesium. Reviewed signs symptoms to report immediately, i.e. fever, chills, nosebleeds, blood in urine, blood in stool. Reviewed healthy diet, be sure is getting adequate fluids. Let us know if has any new concerns. - Time Spent With Patient Total time spent is greater than 50% in coordination of care (as documented) at patient's floor/unit and/or counseling patient: 25 - 35 minutes <Ash Lepe - Last Filed: 02/06/18 17:05> Exam Vital signs: Temperature 97.7 F 02/06/18 16:45 Pulse Rate 83 02/06/18 16:45 Respiratory Rate 12 02/06/18 08:00 Blood Pressure 117/73 02/06/18 16:45 Pulse Oximetry 97 02/06/18 16:45 Oncology Results - Labs CBC & Chem 7: 02/06/18 04:26 02/06/18 04:26 Labs: Short CBC 02/06/18 Range/Units 04:26 WBC 1.1 L* (4.5-11.0) T/MM3 Hgb 9.0 L (12-16) GM/DL Hct 25.5 L (36-46) % Plt Count 22 L* (130-400) T/MM3 BMP 02/06/18 04:26 Sodium 141 Potassium 4.0 Chloride 105 Carbon Dioxide 25 BUN 14.0 Creatinine 0.5 L Glucose 117 H Calcium 9.3 Liver Function 02/06/18 Range/Units 04:26 Total Bilirubin 0.70 (0.20-1.30) MG/DL AST 84 H (14-36) U/L ALT 43 H (1-35) U/L Alkaline Phosphatase 152 H (38-126) U/L Albumin 3.4 L (3.5-5.0) g/dL Assessment and Plan Assessment and Plan: Patient examined, chart reviewed, feeling good. Lungs clear. No evidence of left lung obstruction as she had on admission. Calcium is normal. WBC is 1.1 and starting to improve. Platelets are 22K. We'll plan on giving 1 unit of platelets and dismissing. She will have lab work on Friday in [place]. I will see her on Friday in [place]. I participated with Shannan Kenyon and the development of the plan of care of this patient. Discussed with hospitalist service. - Time Spent With Patient Total time spent is greater than 50% in coordination of care (as documented) at patient's floor/unit and/or counseling patient:
[2018-02-06 16:46] VITALS: BP 117/73; PULSE 83; TEMP 97.7; O2SAT 97
== END 2018-02-06 18:30 | disposition home or self-care (01) | DRG 181 ==
LOC: INTOOBSV 13:22 → MED 13:22 → SUATTDRO 01-27 15:50
PROVIDERS: ADMIT Internal Medicine; ATTEND Internal Medicine